=== PATIENT | male | born 1935 | race Caucasian/White ===

== ENCOUNTER 2017-07-22 19:02 | Observation (INO) ==
[2017-07-22] MEDS ORDERED: GI Cocktail 40 ML EACH PO ONE (19:26)
[2017-07-22] MEDS ORDERED: 0.9 % Sodium Chloride 500 ML IVC ONE (19:26)
[2017-07-22] MEDS ORDERED: Ondansetron 4 MG/2 ML VIAL IVP ONE (19:29)
--- NOTE | 2017-07-22 19:35 | Emergency Department Note ---
Disposition Clinical Impression: Chest pain Qualifiers: Chest pain type: unspecified Qualified Code(s): R07.9 - Chest pain, unspecified Disposition: Admitted As Inpatient Condition: Good Referrals: Neal Mccray Jr, MD [Primary Care Provider] - Forms: Work/School Release, ED Satisfaction Letter Time of Disposition: 21:20 Chest Pain HPI - General Chief Complaint: ED Chest Pain Stated Complaint: Chest/Upper Abdominal Pain Time Seen by Provider: 07/22/17 19:14 Source: patient Limitations: no limitations Vital Signs Reviewed: Yes Nursing Notes Reviewed: Yes - History of Present Illness HPI Narrative: This is an 82 year-old male with history of HTN and HLD who presents with mild discomfort to the lower chest and epigastric region, radiating to both shoulder blades, intermittently for the past 2 days. Associated with cough productive of billy sputum (which seems to go along with/worsen the chest discomfort), nausea, orthostatic dizziness, and mild/intermittent dyspnea. He denies any associated fever or vomiting. He also denies any history of CAD, PNA, COPD, or DVT/PE. Pt complaint: chest pain Onset (ago): day(s) (2) Duration: intermittent Pain Location: substernal Severity: mild Severity scale (1-10): 0 Pain Radiation: abdomen (epigastric) Improves with: nothing Associated symptoms: Reports: nausea, dyspnea (mild), cough. Denies: vomiting, syncope, palpitations, fever, leg swelling Treatments prior to arrival chest pain: aspirin - Related Data Home Medications Medication Instructions Recorded Confirmed Amlodipine Besylate [Amlodipine 5 mg PO DAILY 07/22/17 07/22/17 Besylate] Metoprolol [Lopressor] 100 mg PO DAILY 07/22/17 07/22/17 Valsartan 320 mg PO DAILY 07/22/17 07/22/17 hydroCHLOROthiazide 25 mg PO DAILY 07/22/17 07/22/17 [Hydrochlorothiazide] Allergies Allergy/AdvReac Type Severity Reaction Status Date / Time No Known Allergies Allergy Verified 06/28/17 10:19 All systems ED: reviewed and negative except as stated. Constitutional: Denies: fever Cardiovascular: Reports: as per HPI, chest pain. Denies: palpitations, edema, syncope Respiratory: Reports: cough, dyspnea (mild), sputum production (billy). Denies: hemoptysis Gastrointestinal: Reports: abdominal pain (epigastric, no lower abdominal pain) , nausea, constipation (last BM Sunday, says this is not unusual for him). Denies: vomiting, diarrhea, hematemesis Musculoskeletal: Denies: back pain Neurological: Denies: headache, weakness, numbness Chest Pain PMH - Past Medical History Medical history: Reports: hyperlipidemia, hypertension Surgical history: Reports: no surgical history Psychiatric history: Reports: no psych history - Social History Smoking Status: Former smoker Alcohol use: Reports: none Drug use: Reports: none Physical Exam - General Limitations: no limitations General appearance: alert, in no apparent distress - Head Head exam: atraumatic, normocephalic - Eye Eye exam: Present: normal appearance - ENT ENT exam: normal exam - Neck Neck exam: Present: normal inspection - Chest Chest inspection: Present: normal inspection - Respiratory Respiratory exam: Present: other (crackles bilaterally). Absent: respiratory distress - Cardiovascular Cardiovascular exam: Present: regular rate, normal rhythm, normal heart sounds. Absent: systolic murmur, diastolic murmur, rubs, gallop - Abdominal Exam Abdominal exam: Present: soft, Non-Tender, other (umbilical hernia, which patient says is old/unchanged). Absent: distention, guarding, rebound, rigidity , Snyder's sign, tenderness at McBurney's Point - Extremities Exam Extremities exam: Present: normal inspection. Absent: calf tenderness - Back Exam Back exam: Present: normal inspection - Neurological Exam Neurological exam: Present: alert, oriented X3, CN II-XII intact. Absent: motor sensory deficit - Psychiatric Psychiatric exam: Present: normal affect, normal mood - Skin Skin exam: Present: warm, dry, intact Course - Reevaluation(s) Reevaluation #1: Patient resting comfortably. Discussed test results with him. He is in agreement with coming in for obs. Time: 21:19 - Consultations Consultation #1: Reviewed case with Dr. Live, and patient accepted for admission. Time: 21:55 Vital Signs Temperature 98.1 F 07/22/17 19:04 Pulse Rate 75 07/22/17 19:04 Respiratory Rate 18 07/22/17 19:04 Blood Pressure 168/71 07/22/17 19:04 O2 Sat by Pulse Oximetry 93 07/22/17 19:04 Temperature 98.1 F 07/22/17 19:09 Pulse Rate 65 07/22/17 20:47 Respiratory Rate 18 07/22/17 20:47 Blood Pressure 142/64 07/22/17 20:47 O2 Sat by Pulse Oximetry 95 07/22/17 20:47 Oxygen Delivery Oxygen Delivery Room Air Chest Pain - MDM Narrative Medical decision making narrative: This is an 82 year-old male who presents with mild substernal/epigastric pain intermittently for 2 days, with productive cough, mild dyspnea, and orthostatic dizziness. DDx includes pneumonia, dehydration (has been working in his lawn), PUD/gastritis. Less likely ACS, CHF, pancreatitis, other acute abdominal process. Patient's symptoms, vital signs, and exam not strongly suggestive of DVT or PE. We will treat symptomatically with Zofran and gentle hydration, work up for ACS, pancreatitis, PNA, etc. - Lab Data Lab results reviewed: Yes I reviewed the patient's lab results. Result diagrams: 07/22/17 19:36 07/22/17 19:26 Lab Results 07/22/17 07/22/17 07/22/17 Range/Units 19:26 19:26 19:27 WBC (4.3-11.1) K/mcL RBC (4.19-5.50) M/mcL Hgb (12.9-16.9) g/dL Hct (37.5-50.1) % MCV (83.0-100.0) fL MCH (28.0-33.3) pg MCHC (31.6-35.5) g/dL RDW (11.5-14.5) % Plt Count (140-400) K/mcL MPV (9.4-12.4) fL Immature Gran % (0-4) % Seg Neutrophils % % Lymphocytes % % Monocytes % % Eosinophils % % Basophils % % Neutrophils # (1.6-8.9) K/mcL Lymphocytes # (0.6-4.6) K/mcL Monocytes # (0.0-1.3) K/mcL Eosinophils # (0.0-0.6) K/mcL Basophils # (0.0-0.2) K/mcL PT 13.5 H (9.4-12.1) Seconds INR 1.2 APTT 32.9 (26.0-36.0) Seconds Sodium 137 (136-145) mEq/L Potassium 3.2 L (3.5-5.1) mEq/L Chloride 102 (98-107) mEq/L Carbon Dioxide 25 (23-29) mEq/L BUN 20 (8-23) mg/dL Creatinine 1.21 (0.70-1.30) mg/dL Est GFR ( Amer) > 60 (> 60) Est GFR (Non-Af Amer) 58 L (> 60) BUN/Creatinine Ratio 17 (6-26) Glucose 99 (70-105) mg/dL Calculated Osmolality 287 (280-300) Calcium 9.2 (8.6-10.3) mg/dL Troponin I < 0.03 (< 0.04) ng/mL B-Natriuretic Peptide 198 H (Less than 100) pg/mL Amylase 31 (29-103) Units/L Lipase 22 (11-82) Units/L Urine Opiates Screen (Vyqxen=349) ng/mL Ur Barbiturates Screen (Vvfrnc=091) ng/mL Ur Phencyclidine Scrn (Cutoff=25) ng/mL Ur Amphetamines Screen (Uiaoxe=5055) ng/mL U Benzodiazepines Scrn (Ovtjef=263) ng/mL Urine Cocaine Screen (Cutoff= 300) ng/mL U Marijuana (THC) Screen (Cutoff = 50) ng/mL 18 07/22/17 Range/Units 19:36 19:42 WBC 10.8 (4.3-11.1) K/mcL RBC 4.72 (4.19-5.50) M/mcL Hgb 14.3 (12.9-16.9) g/dL Hct 41.4 (37.5-50.1) % MCV 87.7 (83.0-100.0) fL MCH 30.3 (28.0-33.3) pg MCHC 34.5 (31.6-35.5) g/dL RDW 13.2 (11.5-14.5) % Plt Count 226 (140-400) K/mcL MPV 9.5 (9.4-12.4) fL Immature Gran % 0.2 (0-4) % Seg Neutrophils % 64.0 % Lymphocytes % 20.9 % Monocytes % 14.6 % Eosinophils % 0.0 % Basophils % 0.3 % Neutrophils # 6.9 (1.6-8.9) K/mcL Lymphocytes # 2.3 (0.6-4.6) K/mcL Monocytes # 1.6 H (0.0-1.3) K/mcL Eosinophils # 0.0 (0.0-0.6) K/mcL Basophils # 0.0 (0.0-0.2) K/mcL PT (9.4-12.1) Seconds INR APTT (26.0-36.0) Seconds Sodium (136-145) mEq/L Potassium (3.5-5.1) mEq/L Chloride (98-107) mEq/L Carbon Dioxide (23-29) mEq/L BUN (8-23) mg/dL Creatinine (0.70-1.30) mg/dL Est GFR ( Amer) (> 60) Est GFR (Non-Af Amer) (> 60) BUN/Creatinine Ratio (6-26) Glucose (70-105) mg/dL Calculated Osmolality (280-300) Calcium (8.6-10.3) mg/dL Troponin I (< 0.04) ng/mL B-Natriuretic Peptide (Less than 100) pg/mL Amylase (29-103) Units/L Lipase (11-82) Units/L Urine Opiates Screen Negative (Navnty=946) ng/mL Ur Barbiturates Screen Negative (Fwsxsm=755) ng/mL Ur Phencyclidine Scrn Negative (Cutoff=25) ng/mL Ur Amphetamines Screen Negative (Uaqltv=2152) ng/mL U Benzodiazepines Scrn Negative (Alukff=718) ng/mL Urine Cocaine Screen Negative (Cutoff= 300) ng/mL U Marijuana (THC) Screen Negative (Cutoff = 50) ng/mL - Radiology Data Radiology results reviewed: Yes I reviewed the patient's radiology results. XR/XR chest 2V IMPRESSION: 1. Chronic bilateral lung findings suggesting underlying fibrotic changes versus chronic interstitial lung disease. No focal consolidation identified. D/ / Freeman Vincent MD / Freeman Vincent MD - EKG Data EKG attestation: Yes I reviewed and interpreted this EKG. EKG results narrative: RSR' V1 EKG shows normal: sinus rhythm, intervals [place]/QRS: left axis deviation T wave inversions noted in: III When compared to previous EKG there are: changes noted (03/04/12) Interpretation: nonspecific ST-T wave changes
[2017-07-22 19:43] LABS: Basophils % 0.3 %; Hematocrit 41.4 % (37.5-50.1); Hemoglobin 14.3 g/dL (12.9-16.9); Immature Granulocytes % 0.2 % (0-4); Lymphocytes # 2.3 K/mcL (0.6-4.6); Lymphocytes % 20.9 %; Mean Corpuscular HGB Conc 34.5 g/dL (31.6-35.5); Mean Corpuscular Hemoglobin 30.3 pg (28.0-33.3); Mean Corpuscular Volume 87.7 fL (83.0-100.0); Mean Platelet Volume 9.5 fL (9.4-12.4); Monocytes # 1.6 K/mcL (0.0-1.3); Monocytes % 14.6 %; Neutrophils # 6.9 K/mcL (1.6-8.9); Platelet Count 226 K/mcL (140-400); Red Blood Count 4.72 M/mcL (4.19-5.50); Red Cell Distribution Width 13.2 % (11.5-14.5)
[2017-07-22 19:50] LABS: INR 1.2; Prothrombin Time 13.5 Seconds (9.4-12.1)
[2017-07-22 19:53] LABS: Activated Partial Thrombo Time 32.9 Seconds (26.0-36.0)
[2017-07-22 20:02] LABS: Amphetamine Screen,Urine Negative ng/mL (Cutoff=1000); Barbiturate Screen,Urine Negative ng/mL (Cutoff=200); Benzodiazepines Screen,Urine Negative ng/mL (Cutoff=200); Cannabinoid Screen,Urine Negative ng/mL (Cutoff = 50); Cocaine Screen,Urine Negative ng/mL (Cutoff= 300); Opiate Screen,Urine Negative ng/mL (Cutoff=300); Phencyclidine Screen,Urine Negative ng/mL (Cutoff=25)
[2017-07-22 20:04] LABS: Amylase 31 Units/L (29-103); BUN/Creatinine Ratio 17 (6-26); Blood Urea Nitrogen 20 mg/dL (8-23); Calcium 9.2 mg/dL (8.6-10.3); Carbon Dioxide 25 mEq/L (23-29); Chloride 102 mEq/L (98-107); Glucose 99 mg/dL (70-105); Lipase 22 Units/L (11-82); Osmolality,Calculated 287 (280-300); Potassium 3.2 mEq/L (3.5-5.1); Sodium 137 mEq/L (136-145); eGFR For African Americans > 60 (> 60); eGFR For Non-African Americans 58 (> 60)
[2017-07-22 20:05] LABS: Troponin I < 0.03 ng/mL (< 0.04)
[2017-07-22] MEDS ORDERED: Potassium Chloride Elixir 20 MEQ/15 ML UDC PO ONE (21:08)
--- NOTE | 2017-07-22 23:06 | Internal Med History&Physical ---
Date of Encounter: 07/22/17 Time of Encounter: 22:35 Internal Medicine - H&P: HPI Chief complaint: chest pain Admitted From: Home Plans for Post Hospital Care: Home History of present illness: Mr. Avina is a 82 year old male with a pmh of HTN and HLP who presented to the ED complaining of a cough and chest pain. About one week ago patient states that he began to have a productive coughing with green/collins sputum and associated rhinorrhea, diffuse myalgia, SOB, and intermittent nausea. He states that he has not desired to eat as much. Denies hempotisis, dysphagia. He has had some vertigo with coughing. 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 Worsen with coughing but Not worsened with excertion, no change with position. Pain went away yesterday. Upon arrival to the ED, patient's vitals were wnl except an elevated blood pressure of 168/71. WBC wnl, initial troponin negative, BNP= 198, lipase= 22. EKG showed *. CXR shows Chronic bilateral lung findings suggesting underlying fibrotic changes versus chronic interstitial lung disease. No focal consolidation identified. GI cocktail, zofran, KCl 40meq and a 500ml NS bolus given in the ED. Patient was admitted to the floor for chest pain. Past Med Surg Social Fam HX - Past Medical History Medical history: hyperlipidemia, hypertension Psychiatric history: no psych history - Past Surgical History Surgical History: no surgical history - Social History Smoking Status: Former smoker Smokeless Tobacco Status: No Alcohol use: none Drug use: none Internal Medicine - H&P: Meds Amlodipine Besylate [Amlodipine Besylate] 5 mg PO DAILY 07/22/17 [History] Metoprolol [Lopressor] 100 mg PO DAILY 07/22/17 [History] Valsartan 320 mg PO DAILY 07/22/17 [History] hydroCHLOROthiazide [Hydrochlorothiazide] 25 mg PO DAILY 07/22/17 [History] 3 Allergy/AdvReac Type Severity Reaction Status Date / Time No Known Allergies Allergy Verified 06/28/17 10:19 All Systems PM: A 10-system review of systems was performed and is negative for pertinent findings except as documented above in the HPI. Review of systems: as per HPI - Constitutional Vitals: Temp Pulse Resp BP Pulse Ox 98.1 F 65 18 142/64 95 07/22/17 19:09 07/22/17 20:47 07/22/17 20:47 07/22/17 20:47 07/22/17 20:47 Exam: Constitutional: Alert, in no acute distress Head: Normocephalic, atraumatic, no sinus tenderness Heart: Normal, regular rate and rhythm, no murmurs Lungs: + crackles bilaterally Abdomen: Soft, nondistended, nontender, bowel sounds present and normal, no guarding or rigidity. back: tenderness medial to inferior border of left scapula Extremities: No edema, No clubbing, radial pulse +2/4, capillary refill <2sec. Skin: Skin warm and dry, no lesions, no rashes, no jaundice Neurologic: Cranial nerves II through XII grossly intact, strength 5/5 in all extremitites Psych: Cooperative with exam, good eye contact, cognitive function intact, speech clear, thought process logical, and goal directed Internal Med - H&P Results - Labs CBC & Chem 7: 07/22/17 19:36 07/22/17 19:26 - Assessment and plan (1) Chest pain Current Visit: Yes Status: Acute Assessment and plan: Risk factors of HTN, HLD. Patient describes chest pain as dull achy substernal , not worsened with excertion. No previous cardiac work-up. EKG shows sinus rhythm, t-wave inversion in lead III. Initial troponin negative. Plan: - trending troponins - Echo pending - continue telemetry - correct potassium, Mg level in the AM Qualifiers: Chest pain type: unspecified Qualified Code(s): R07.9 - Chest pain, unspecified (2) Acute bronchitis Current Visit: Yes Status: Acute Assessment and plan: Productive cough and rhinorrhea for 7 days. CXR negative for pneumonia. PE: crackles. Plan: - sputum culture - Azithromycin ( 1/5 days) Qualifiers: Bronchitis organism: unspecified organism Qualified Code(s): J20.9 - Acute bronchitis, unspecified (3) Hypokalemia Current Visit: Yes Status: Acute Assessment and plan: K= 3.2, most likely 2/2 to HCTZ. Given 40mg of KCl in the ED. Plan: -Potassium Chloride 40mg oral - recheck in the AM (4) Hypertension Current Visit: Yes Status: Acute Assessment and plan: Continue home meds (HCTZ, amlodipine, valsartan, metoprolol). Qualifiers: Hypertension type: essential hypertension Qualified Code(s): I10 - Essential (primary) hypertension (5) DVT prophylaxis Current Visit: Yes Status: Acute Assessment and plan: Heparin SQ - Time Spent With Patient Total time spent is greater than 50% in coordination of care (as documented) at patient's floor/unit and/or counseling patient:
[2017-07-22] MEDS ORDERED: Naloxone 0.4 MG/ML INJ IVP PRN ×2 (23:15→23:17)
[2017-07-22] MEDS ORDERED: Acetaminophen 325 MG TABLET PO PRN (23:17)
[2017-07-22] MEDS ORDERED: Azithromycin 250 MG TABLET PO ONE (23:49)
[2017-07-22] MEDS ORDERED: Ondansetron 4 MG/2 ML VIAL IVP PRN (23:51)
[2017-07-23 01:46] LABS: Hematocrit 39.9 % (37.5-50.1); Hemoglobin 13.7 g/dL (12.9-16.9); Mean Corpuscular HGB Conc 34.3 g/dL (31.6-35.5); Mean Corpuscular Hemoglobin 30.4 pg (28.0-33.3); Mean Corpuscular Volume 88.7 fL (83.0-100.0); Mean Platelet Volume 9.1 fL (9.4-12.4); Platelet Count 190 K/mcL (140-400); Red Cell Distribution Width 13.2 % (11.5-14.5)
[2017-07-23 02:11] LABS: BUN/Creatinine Ratio 17 (6-26); Blood Urea Nitrogen 17 mg/dL (8-23); Calcium 8.7 mg/dL (8.6-10.3); Carbon Dioxide 27 mEq/L (23-29); Chloride 102 mEq/L (98-107); Glucose 95 mg/dL (70-105); Magnesium 1.7 mg/dL (1.6-2.6); Osmolality,Calculated 279 (280-300); Phosphorous 1.9 mg/dL (2.7-4.5); Sodium 134 mEq/L (136-145); eGFR For African Americans > 60 (> 60); eGFR For Non-African Americans > 60 (> 60)
--- NOTE | 2017-07-23 04:20 | Event Note ---
Date of Encounter: 07/22/17 Time of Encounter: 22:30 I saw and evaluated the patient. I reviewed the residents note and agree with findings and plan as documented in the residents note. I requested the resident to add an addendum to her original note to include her EKG interpretation. I have spent greater than 35 minutes of this encounter in counseling and/or coordinating care. I discussed with the patient the results of his labs, and are plan going forward.
[2017-07-23] MEDS: *HR* Heparin 5,000 UNIT/ML VIAL SQ SCH ×2 (06:01→16:55)
--- NOTE | 2017-07-23 08:10 | Internal Med Progress Note ---
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 Worsened with coughing, but not worsened with excertion, no change with position. EKG shows normal sinus rhythm with a HR of 73, QTc= 410ms, SD interval= 153ms. New T-wave inversion in lead III compared to prior EKG 03/04/12. Serial troponins negative x3. Plan: Patient already ate this AM. Plan stress test tomorrow. NPO after midnight. Hold Metoprolol prior to stress test. 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 CXR shows Chronic bilateral lung findings suggesting underlying fibrotic changes versus chronic interstitial lung disease. No focal consolidation identified. negative for pneumonia. Rales on exam, elevated BNP 198 Plan: - sputum culture, RIP, and urine Strep and Legionella antigens pending - echo pending - Azithromycin ( 1/5 days) Qualifiers: Bronchitis organism: unspecified organism Qualified Code(s): J20.9 - Acute bronchitis, unspecified (3) Hypokalemia Current Visit: Yes Status: Acute Assessment and plan: K= 3.2 on admission, most likely due to HCTZ. Given Potassium Chloride 80mg total. Mg level WNL Plan: -Recheck in the AM (4) Hypertension Current Visit: Yes Status: Acute Assessment and plan: Continue home meds (HCTZ, amlodipine, valsartan, metoprolol). Hold metoprolol prior to stress test Qualifiers: Hypertension type: essential hypertension Qualified Code(s): I10 - Essential (primary) hypertension (5) DVT prophylaxis Current Visit: Yes Status: Acute Assessment and plan: Heparin SQ (6) CHF (congestive heart failure) Current Visit: Yes Status: Suspected Assessment and plan: CXR shows Chronic bilateral lung findings suggesting underlying fibrotic changes versus chronic interstitial lung disease. No focal consolidation identified. negative for pneumonia. Rales on exam, elevated BNP 198 Plan: - Lasix 40mg IV given x1 - echo pending Qualifiers: Heart failure type: unspecified Heart failure chronicity: acute Qualified Code(s): I50.9 - Heart failure, unspecified - Time Spent With Patient Total time spent is greater than 50% in coordination of care (as documented) at patient's floor/unit and/or counseling patient: - Subjective Interval history: Patient seen and examined resting comfortably in bed. Patient denies any new c/ o. Serial troponins are negative x3. Echo pending. Patient already ate this AM. Plan stress test tomorrow. - Constitutional Vitals: Temp Pulse Resp BP Pulse Ox 99.0 F 70 17 121/53 92 07/23/17 07:22 07/23/17 07:22 07/23/17 07:22 07/23/17 07:22 07/23/17 07:22 General appearance: Present: cooperative, A&O X 3, pleasant, no acute distress, answers questions appropriately - Head Head exam: Present: atraumatic, normocephalic - Eye Eye exam: Present: PERRL, conjuntiva pink, sclera anicteric Pupils: Present: PERRL - ENT ENT exam: Present: mucous membranes moist, normal oropharynx (mild erythema) - Neck Neck exam general surgery: Present: supple, trachea midline. Absent: lymphadenopathy - Respiratory Respiratory exam: Present: rales. Absent: accessory muscle use, rhonchi, wheezes - Cardiovascular Cardiovascular exam: Present: RRR, +S1, +S2. Absent: diastolic murmur, gallop, rubs, systolic murmur - GI/Abdominal GI/Abdominal exam: Present: normal bowel sounds, soft, no peritoneal signs. Absent: distended, tenderness - Extremities Exam Extremities exam: Present: warm, radial pulses palpable and symmetrical. Absent : calf tenderness, cyanotic, pedal edema - Back Exam Back exam: Present: normal inspection. Absent: paraspinal tenderness, tenderness - Neurological Exam Neurological exam: Present: CN II-XII intact, oriented X3, no focal deficits. Absent: pronater drift, facial droop, speech deficit - Psychiatric Psychiatric exam: Present: normal affect, normal mood - Skin Skin exam: Present: dry, intact Internal Medicine: Result - Labs CBC & Chem 7: 07/23/17 01:33 07/23/17 01:33 Labs: Short CBC 07/23/17 Range/Units 01:33 WBC 9.9 (4.3-11.1) K/mcL Hgb 13.7 (12.9-16.9) g/dL Hct 39.9 (37.5-50.1) % Plt Count 190 (140-400) K/mcL BMP 07/23/17 01:33 Sodium 134 L Potassium 4.0 Chloride 102 Carbon Dioxide 27 BUN 17 Creatinine 1.03 Glucose 95 Calcium 8.7 Cardiac Enzymes 07/23/17 Range/Units 01:33 Troponin I < 0.03 (< 0.04) ng/mL - ABG Interpretation ABG results: PT/INR, D-dimer PT 13.5 Seconds (9.4-12.1) H 07/22/17 19:26 - Pulse Oximetry Interpretation Digit-Finger Pulse Oximetry Readin (On RA) Consult Discharge Plan - Plan Referrals: Neal Mccray Jr, MD [Primary Care Provider] - 08/01/17 11:00 am <Monty Chan - Last Filed: 07/23/17 18:30> Date of Encounter: 07/23/17 - Assessment and plan (1) Chest pain Current Visit: Yes Status: Acute Qualifiers: Chest pain type: unspecified Qualified Code(s): R07.9 - Chest pain, unspecified (2) Acute bronchitis Current Visit: Yes Status: Acute Qualifiers: Bronchitis organism: unspecified organism Qualified Code(s): J20.9 - Acute bronchitis, unspecified (3) Hypokalemia Current Visit: Yes Status: Acute (4) Hypertension Current Visit: Yes Status: Acute Qualifiers: Hypertension type: essential hypertension Qualified Code(s): I10 - Essential (primary) hypertension (5) DVT prophylaxis Current Visit: Yes Status: Acute (6) CHF (congestive heart failure) Current Visit: Yes Status: Suspected Qualifiers: Heart failure type: unspecified Heart failure chronicity: acute Qualified Code(s): I50.9 - Heart failure, unspecified - Time Spent With Patient Total time spent is greater than 50% in coordination of care (as documented) at patient's floor/unit and/or counseling patient: - Constitutional Vitals: Temp Pulse Resp BP Pulse Ox 99.0 F 75 16 124/70 95 07/23/17 15:34 07/23/17 15:34 07/23/17 16:02 07/23/17 15:34 07/23/17 16:02 Internal Medicine: Result - Labs CBC & Chem 7: 07/23/17 01:33 07/23/17 01:33 Labs: Short CBC 07/23/17 Range/Units 01:33 WBC 9.9 (4.3-11.1) K/mcL Hgb 13.7 (12.9-16.9) g/dL Hct 39.9 (37.5-50.1) % Plt Count 190 (140-400) K/mcL BMP 07/23/17 01:33 Sodium 134 L Potassium 4.0 Chloride 102 Carbon Dioxide 27 BUN 17 Creatinine 1.03 Glucose 95 Calcium 8.7 Cardiac Enzymes 07/23/17 07/23/17 Range/Units 01:33 08:23 Troponin I < 0.03 < 0.03 (< 0.04) ng/mL - ABG Interpretation ABG results: PT/INR, D-dimer PT 13.5 Seconds (9.4-12.1) H 07/22/17 19:26 - Impressions Impressions Echocardiogram 07/23/17 07:12 Impressions: LVEF 60-65%. Normal LV chamber size, wall thickness and function. Mild left ventricular diastolic dysfunction. Normal right ventricular structure and function. Mild pulmonary hypertension. No significant valvular dysfunction. Left Ventricular Wall Motion: Rest Echo Findings All wall segments showed normal motion. Findings: Study Quality * Technically adequate exam. ECG Findings * Normal sinus rhythm. Left Ventricle * LVEF 60-65%. * Normal LV chamber size, wall thickness and function. * Mild left ventricular diastolic dysfunction. Right Ventricle * Normal right ventricular structure and function. Left Atrium * Mildly dilated left atrium. Right Atrium * Normal right atrial size. Aortic Valve * Mildly sclerotic aortic valve leaflets. * Trileaflet aortic valve. * No aortic regurgitation. * No aortic stenosis. Mitral Valve * Mild mitral annular calcification * No mitral regurgitation. * No mitral stenosis. Tricuspid Valve * Normal tricuspid valve structure and function. * Trace tricuspid regurgitation. * Mild pulmonary hypertension. Pulmonic Valve * Normal pulmonic valve structure and function. * No pulmonic regurgitation. Aorta * Normally sized aortic root. Pericardium * The pericardium appears normal. IVC * The IVC is not well evaluated. Pulmonary Artery * Normal visualized portions of the main pulmonary artery. - Attending Attestation I examined this patient and my medical decision-making was reviewed with the Resident Physician Dr. Ornelas. I agree with the documented findings, disposition and treatment plan as described except to the extent set forth below. Mr. Avina is a 82 year old male with a pmh of HTN and HLP who presented to the ED complaining of a cough and chest pain. About one week ago patient states that he began to have a productive coughing with green/collins sputum and associated rhinorrhea, diffuse myalgia, SOB, and intermittent nausea. Pt was admitted here and started him on empirical abx, as well as placed him on tele. Gen: A, A, O x3 Chest: Diminished BS b/l. mild rales at basal regions Heart: S1S2+ RRR a/p 1. Acute bronchitis concerning for bacterial inf Empirical abx supportive and symptomatic care 2. Acute CP high risk for ACS cont on tele serial trop Stress test in AM 3. Mild Diastolic CHF exacerbation His BNP elevated, CXR showed mild vacular congestion ( could be due to brochilitis ) one dose IV Lasix 2 D Echo showed preserved LVEF mild diastolic dysfunction
[2017-07-23] MEDS: hydroCHLOROthiazide 25 MG TABLET PO SCH (08:46)
[2017-07-23] MEDS: Valsartan 160 MG TABLET PO SCH (08:46)
[2017-07-23] MEDS: Azithromycin 250 MG TABLET PO SCH (08:47)
[2017-07-23] MEDS: amLODIPine 5 MG TABLET PO SCH (08:47)
[2017-07-23] MEDS ORDERED: Metoprolol 100 MG TABLET PO SCH (09:00)
[2017-07-23] MEDS: GuaiFENesin/Dextromethorphan TABLET PO SCH ×2 (11:13→21:00)
[2017-07-23] MEDS ORDERED: Ipratropium/Albuterol Neb 3 ML ONE (11:57)
[2017-07-23] MEDS ORDERED: Furosemide 40 MG/4 ML VIAL IVP ONE (11:58)
[2017-07-23] MEDS: Ipratropium/Albuterol Neb 3 ML IH SCH ×3 (12:16→22:27)
[2017-07-23 17:02] LABS: Adenovirus Not Detected (Not Detect); Bordetella Pertussis Not Detected (Not Detect); Chlamydophila pneumoniae Not Detected (Not Detect); Coronavirus 229E Not Detected (Not Detect); Coronavirus HKU1 Not Detected (Not Detect); Coronavirus NL63 Not Detected (Not Detect); Coronavirus OC43 Not Detected (Not Detect); Human Metapneumovirus Not Detected (Not Detect); Human Rhinovirus/Enterovirus Not Detected (Not Detect); Influenza A Subtype 2009 H1 Not Detected (Not Detect); Influenza A Untypeable Not Detected (Not Detect); Influenza B Not Detected (Not Detect); Mycoplasma pneumoniae Not Detected (Not Detect); Parainfluenza Virus 1 Not Detected (Not Detect); Parainfluenza Virus 2 Not Detected (Not Detect); Parainfluenza Virus 3 Not Detected (Not Detect); Parainfluenza Virus 4 Not Detected (Not Detect); Respiratory Syncytial Virus Not Detected (Not Detect)
--- NOTE | 2017-07-23 18:50 | Electrocardiograph Report ---
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
[2017-07-24] MEDS: Ipratropium/Albuterol Neb 3 ML IH SCH ×2 (03:47→10:35)
[2017-07-24] MEDS ORDERED: Regadenoson 0.4 MG/5 ML SYRINGE IVP ONE (05:39)
[2017-07-24] MEDS: *HR* Heparin 5,000 UNIT/ML VIAL SQ SCH (06:00)
[2017-07-24 06:02] LABS: BUN/Creatinine Ratio 20 (6-26); Blood Urea Nitrogen 22 mg/dL (8-23); Calcium 8.8 mg/dL (8.6-10.3); Carbon Dioxide 25 mEq/L (23-29); Chloride 96 mEq/L (98-107); Glucose 122 mg/dL (70-105); Osmolality,Calculated 277 (280-300); Potassium 3.2 mEq/L (3.5-5.1); Sodium 131 mEq/L (136-145); eGFR For African Americans > 60 (> 60); eGFR For Non-African Americans > 60 (> 60)
[2017-07-24 09:38] VITALS: BP 126/70
[2017-07-24] MEDS: Valsartan 160 MG TABLET PO SCH (10:32)
[2017-07-24] MEDS: Azithromycin 250 MG TABLET PO SCH (10:32)
[2017-07-24] MEDS: hydroCHLOROthiazide 25 MG TABLET PO SCH (10:32)
[2017-07-24] MEDS: GuaiFENesin/Dextromethorphan TABLET PO SCH (10:32)
[2017-07-24] MEDS: amLODIPine 5 MG TABLET PO SCH (10:32)
--- NOTE | 2017-07-24 10:33 | Discharge Summary ---
<Arvin Ornelas - Last Filed: 07/24/17 12:56> - NOTES TO OUTPATIENT PROVIDER Notes to Outpatient Provider: Patient treated for acute bronchitis, hypokalemia , and diastolic CHF. Conitnue Azithromycin for 3 more days. Repeat BMP in 1 week. 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 Worsened with coughing, but not worsened with excertion, no change with position. EKG shows normal sinus rhythm with a HR of 73, QTc= 410ms, OH interval= 153ms. New T-wave inversion in lead III compared to prior EKG 03/04/12. Serial troponins negative x3. Plan: Nuclear stress test performed. Metoprolol held prior to stress test. 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 CXR shows Chronic bilateral lung findings suggesting underlying fibrotic changes versus chronic interstitial lung disease. No focal consolidation identified. negative for pneumonia. Decreased Rales on exam, elevated BNP 198 Plan: - sputum culture, RIP, and urine Strep and Legionella antigens negative - Azithromycin ( Day 2 of 5) Qualifiers: Bronchitis organism: unspecified organism Qualified Code(s): J20.9 - Acute bronchitis, unspecified (3) Hypokalemia Priority: Primary Status: Acute Assessment and Plan: K= 3.2 on admission, most likely due to HCTZ. Given Potassium Chloride. Mg level WNL Plan: -Supplement potassium (4) Hypertension Priority: Secondary Status: Acute Assessment and Plan: Continue home meds (HCTZ, amlodipine, valsartan, metoprolol). Hold metoprolol prior to stress test Qualifiers: Hypertension type: essential hypertension Qualified Code(s): I10 - Essential (primary) hypertension (5) DVT prophylaxis Priority: Secondary Status: Acute Assessment and Plan: Heparin SQ (6) CHF (congestive heart failure) Priority: Primary Status: Acute Assessment and Plan: CXR shows Chronic bilateral lung findings suggesting underlying fibrotic changes versus chronic interstitial lung disease. No focal consolidation identified. negative for pneumonia. Rales on exam, elevated BNP 198 Plan: - Lasix 40mg IV given x1 - Echo reveals 60-65% EF, mild LV diastolic dysfunction - Continue home meds Qualifiers: Heart failure type: diastolic Heart failure chronicity: acute Qualified Code(s): I50.31 - Acute diastolic (congestive) heart failure Hospital course: Mr. Avina is a 82 year old male - Time Spent with Patient Total time spent providing and/or coordinating discharge services: - Discharge Medications Prescriptions: Azithromycin [Zithromax] 250 mg PO DAILY #3 tablet Furosemide [Lasix] 20 mg PO DAILY #30 tablet GuaiFENesin/Dextromethorphan [Mucinex Dm] 1 each PO BID #14 tab.er.12h Potassium Chloride 10 meq PO DAILY #30 tab.er.prt Home Medications: Amlodipine Besylate 5 mg PO DAILY 07/22/17 [History] Valsartan 320 mg PO DAILY 07/22/17 [History] Metoprolol Succinate [Toprol Xl] 100 mg PO DAILY 07/23/17 [History] Simvastatin [Zocor] 20 mg PO HS 07/23/17 [History] Azithromycin [Zithromax] 250 mg PO DAILY #3 tablet 07/24/17 [Rx] Furosemide [Lasix] 20 mg PO DAILY #30 tablet 07/24/17 [Rx] GuaiFENesin/Dextromethorphan [Mucinex Dm] 1 each PO BID #14 tab.er.12h 07/24/17 [Rx] Metoprolol [Lopressor] 100 mg PO DAILY tablet 07/24/17 [Rx] Potassium Chloride 10 meq PO DAILY #30 tab.er.prt 07/24/17 [Rx] Allergies/Adverse Reactions: 3 Allergy/AdvReac Type Severity Reaction Status Date / Time No Known Allergies Allergy Verified 06/28/17 10:19 Date of admission: 07/22/17 22:00 Primary care physician: Neal Mccray Jr, MD Discharging clinician: Arvin Ornelas Anticipated date of discharge: 07/24/17 - Constitutional Vitals: Temp Pulse Resp BP Pulse Ox 97.7 F 74 17 126/70 95 07/24/17 09:37 07/24/17 09:37 07/24/17 09:37 07/24/17 09:37 07/24/17 09:37 General appearance: Present: cooperative, A&O X 3, pleasant, no acute distress, answers questions appropriately - Head Head exam: Present: atraumatic, normocephalic - Eye Eye exam: Present: PERRL, conjuntiva pink, sclera anicteric Pupils: Present: PERRL - ENT ENT exam: Present: mucous membranes moist, normal oropharynx - Neck Neck exam general surgery: Present: supple, trachea midline. Absent: lymphadenopathy - Respiratory Respiratory exam: Present: CTAB. Absent: accessory muscle use, rales, rhonchi, wheezes - Cardiovascular Cardiovascular exam: Present: RRR, +S1, +S2. Absent: diastolic murmur, gallop, rubs, systolic murmur - GI/Abdominal GI/Abdominal exam: Present: normal bowel sounds, soft, no peritoneal signs. Absent: distended, tenderness - Extremities Exam Extremities exam: Present: warm, radial pulses palpable and symmetrical. Absent : calf tenderness, cyanotic, pedal edema - Back Exam Back exam: Present: normal inspection. Absent: paraspinal tenderness, tenderness - Neurological Exam Neurological exam: Present: CN II-XII intact, oriented X3, no focal deficits. Absent: pronater drift, facial droop, speech deficit - Psychiatric Psychiatric exam: Present: normal affect, normal mood - Skin Skin exam: Present: dry, intact, normal color, warm - Patient Status Disposition: Home, Self-Care Condition: Good Functional capacity at discharge: independent ambulation Overall status at discharge: patient is back to baseline - Discharge Instructions Instructions: Potassium Chloride (By mouth), Guaifenesin (By mouth), Azithromycin (By mouth), Chest Pain (DC), Acute Bronchitis (DC) Follow Up With: Neal Mccray Jr, MD [Primary Care Provider] - 08/01/17 11:00 am - Diet and Activity Activity: increase activity as tolerated, resume usual activities as tolerated Diet: regular diet (cardiac) <Monty Chan - Last Filed: 07/24/17 13:28> Orders not resulted at time of discharge: Pending orders 07/24/17 05:44 NM keanu perf SPECT multi [NM] Routine Date of Encounter: 07/24/17 - Discharge Diagnosis (1) Chest pain Status: Acute Qualifiers: Chest pain type: unspecified Qualified Code(s): R07.9 - Chest pain, unspecified (2) Acute bronchitis Status: Acute Qualifiers: Bronchitis organism: unspecified organism Qualified Code(s): J20.9 - Acute bronchitis, unspecified (3) Hypokalemia Status: Acute (4) Hypertension Status: Acute Qualifiers: Hypertension type: essential hypertension Qualified Code(s): I10 - Essential (primary) hypertension (5) DVT prophylaxis Status: Acute (6) CHF (congestive heart failure) Status: Acute Qualifiers: Heart failure type: diastolic Heart failure chronicity: acute Qualified Code(s): I50.31 - Acute diastolic (congestive) heart failure Hospital course: Mr. vAina is a 82 year old male - Time Spent with Patient Total time spent providing and/or coordinating discharge services: Date of admission: 07/22/17 22:00 Primary care physician: Neal Mccray Jr, MD - Constitutional Vitals: Temp Pulse Resp BP Pulse Ox 97.7 F 74 17 126/70 95 07/24/17 09:37 07/24/17 09:37 07/24/17 10:36 07/24/17 09:37 07/24/17 10:36 - Attending Attestation I examined this patient and my medical decision-making was reviewed with the Resident Physician Dr. Ornelas. I agree with the documented findings, disposition and treatment plan as described except to the extent set forth below. Mr. Avina is a 82 year old male with a pmh of HTN and HLP who presented to the ED complaining of a cough and chest pain. About one week ago patient states that he began to have a productive coughing with green/collins sputum and associated rhinorrhea, diffuse myalgia, SOB, and intermittent nausea. Pt was admitted here and started him on empirical abx, as well as placed him on tele. Denied any more CP. Breathing comfortably on RA Gen: A, A, O x3 Chest: Diminished BS b/l. Heart: S1S2+ RRR a/p 1. Acute bronchitis concerning for bacterial inf Empirical abx supportive and symptomatic care 2. Acute CP high risk for ACS cont on tele serial trop negative Stress test came back as negative for ischemia 3. Mild Diastolic CHF exacerbation His BNP elevated, CXR showed mild vascular congestion ( could be due to bronchiolitis ) switched to PO Lasix 2 D Echo showed preserved LVEF mild diastolic dysfunction Medically stable to d/c home
== END 2017-07-24 15:02 | disposition home or self-care (01) ==
LOC: EMEROO 19:02 → 3BNU 19:02
PROVIDERS: ADMIT Family Medicine; ATTEND Pediatrics

== ENCOUNTER 2018-09-09 17:39 | Inpatient (IN) ==
--- NOTE | 2018-09-09 17:52 | Emergency Department Note ---
Disposition Clinical Impression: Lung nodule, Fatty liver, NSTEMI (non-ST elevated myocardial infarction) Chest pain Qualifiers: Chest pain type: unspecified Qualified Code(s): R07.9 - Chest pain, unspecified Disposition: Admitted As Inpatient Condition: Fair Time of Disposition: 20:18 General Adult HPI - General Stated complaint: Chest pain Time Seen by Provider: 09/09/18 17:44 Source: patient, EMS Mode of arrival: EMS Limitations: no limitations Nursing Notes Reviewed: Yes Vital Signs Reviewed: Yes - History of Present Illness HPI Narrative: Male patient presenting to the emergency room complaining of left-sided chest pain. States it started earlier this afternoon after he was helping his brother work on some windows. States that he spelled the pain before but never this severe. Is been intermittent performed but is now consistent. Reports occasional shortness of breath associated with this. States that it does radi ate to his back as well as to the left side occasionally. He did go to urgent care initially for this pain and was transferred here. Was given 324 mg of aspirin as well as nitroglycerin in route. This did not change patient's chest pain. Was also given 8 mg of morphine. - Related Data Home Medications Medication Instructions Recorded Confirmed Amlodipine Besylate 5 mg PO DAILY 07/22/17 07/23/17 Valsartan 320 mg PO DAILY 07/22/17 07/23/17 Metoprolol Succinate [Toprol Xl] 100 mg PO DAILY 07/23/17 07/23/17 Simvastatin [Zocor] 20 mg PO HS 07/23/17 07/23/17 Previous Rx's Medication Instructions Recorded Azithromycin [Zithromax] 250 mg PO DAILY #3 tablet 07/24/17 Furosemide [Lasix] 20 mg PO DAILY #30 tablet 07/24/17 GuaiFENesin/Dextromethorphan 1 each PO BID #14 tab.er.12h 07/24/17 [Mucinex Dm] Metoprolol [Lopressor] 100 mg PO DAILY tablet 07/24/17 Potassium Chloride 10 meq PO DAILY #30 tab.er.prt 07/24/17 Allergies Allergy/AdvReac Type Severity Reaction Status Date / Time No Known Allergies Allergy Verified 06/28/17 10:19 All systems ED: reviewed and negative except as stated. Review of Systems: As Per HPI Constitutional: Denies: fever, chills Cardiovascular: Reports: chest pain. Denies: palpitations, syncope Respiratory: Reports: dyspnea (occasional) Gastrointestinal: Denies: abdominal pain, nausea, vomiting, diarrhea Genitourinary: Denies: urgency, dysuria, frequency, hematuria Musculoskeletal: Denies: back pain Neurological: Denies: headache Past Medical History - Past Medical History Attestation: Yes The following information was validated with the patient. Source: patient Medical history: Reports: hyperlipidemia, hypertension Surgical history: Reports: no surgical history Psychiatric history: Reports: no psych history - Social History Smoking Status: Former smoker Smokeless Tobacco Status: No Alcohol use: Reports: none Drug use: Reports: none Physical Exam - General General appearance: in distress (appears uncomfortable) - Head Head exam: atraumatic, normocephalic, normal inspection - Eye Eye exam: Present: normal appearance, PERRL, EOMI - ENT ENT exam: normal exam, normal oropharynx, mucous membranes moist - Neck Neck exam: Present: normal inspection, full ROM, trachea midline. Absent: tenderness - Chest Chest inspection: Present: normal inspection, symmetric chest wall rise - Respiratory Respiratory exam: Present: normal lung sounds bilaterally. Absent: respiratory distress, accessory muscle use - Cardiovascular Cardiovascular exam: Present: regular rate, normal rhythm, normal heart sounds - Abdominal Exam Abdominal exam: Present: soft, Non-Tender. Absent: tenderness, distention, guarding, rebound, rigidity, organomegaly, Snyder's sign, Rovsing's sign, tenderness at McBurney's Point - Extremities Exam Extremities exam: Present: normal inspection, full ROM, normal capillary refill. Absent: tenderness, pedal edema - Back Exam Back exam: Present: normal inspection, full ROM. Absent: tenderness - Neurological Exam Neurological exam: Present: alert, oriented X3 - Psychiatric Psychiatric exam: Present: normal affect, normal mood - Skin Skin exam: Present: warm, dry, intact, normal color. Absent: rash Course Course Narrative: Patient appears uncomfortable in bed. He is mildly tachypneic. Frequently grabbing the left side of his chest and raising up off the bed. Does not appear to be histrionic in nature however. Lung sounds are clear heart tones are normal abdomen soft nontender. He does have a mild umbilical hernia. This is not incarcerated and appearance. It does reduce easily. Patient with no significant cardiac history. He does however have a history of high cholesterol as well as hypertension. He has been taking his medication as prescribed. Has never had a cardiac evaluation that he states. Initial EKG with some T-wave inversion in lead 3. We will get a basic lab workup on patient. Provided him with further nitroglycerin. Patient does appear to be sleepy after the morphine use we will withhold opiates at this time. He did receive aspirin by EMS prior to arrival here. He did not have chest pain relief with the initial nitroglycerin her we will still continue with this. - Reevaluation(s) Reevaluation #1: Patient's troponin is elevated at 9. Repeat EKG with T-wave inversion now in lead V4. Patient is also now in atrial fibrillation she was not and earlier. We did call Dr. Donato. We discussed our concern for the patient's presentation as well as his ongoing chest pain and EKG changes as well as elevated troponin he states he will begin to the patient. He is requesting we activated Package Handler. However we also discussed that this is not STEMI criteria so we will not be activating a active STEMI. - Consultations Consultation #1: I spoke with Dr Donato. We discussed the patient EKG changes and his ongoing chest pain as well as his presentation elevated troponin. He is requesting we go ahead and activate the Package Handler and he will be in the cath the patient tonight. Time: 20:06 Vital Signs Temperature 99.4 F 09/09/18 17:54 Pulse Rate 73 09/09/18 17:54 Respiratory Rate 16 09/09/18 17:54 Blood Pressure 138/68 09/09/18 17:54 O2 Sat by Pulse Oximetry 97 09/09/18 17:54 Temperature 99.4 F 09/09/18 17:54 Pulse Rate 112 09/09/18 20:31 Respiratory Rate 14 09/09/18 20:31 Blood Pressure 132/100 09/09/18 20:31 O2 Sat by Pulse Oximetry 95 09/09/18 20:31 Oxygen Delivery Oxygen Delivery Nasal Cannula Medical Decision Making - Medical Records Medical records reviewed: Yes I reviewed the patient's medical records. - Lab Data Lab results reviewed: Yes I reviewed the patient's lab results. Result diagrams: 09/09/18 18:01 09/09/18 18:01 Lab Results 09/09/18 09/09/18 09/09/18 Range/Units 18:01 18:01 18:01 WBC 14.2 H (4.3-11.1) K/mcL RBC 4.47 (4.19-5.50) M/mcL Hgb 13.9 (12.9-16.9) g/dL Hct 41.8 (37.5-50.1) % MCV 93.5 (83.0-100.0) fL MCH 31.1 (28.0-33.3) pg MCHC 33.3 (31.6-35.5) g/dL RDW 13.7 (11.5-14.5) % Plt Count 239 (140-400) K/mcL MPV 10.2 (9.4-12.4) fL Immature Gran % 0.6 (0-4) % Seg Neutrophils % 77.5 % Lymphocytes % 9.2 % Monocytes % 12.3 % Eosinophils % 0.0 % Basophils % 0.4 % Neutrophils # 11.0 H (1.6-8.9) K/mcL Lymphocytes # 1.3 (0.6-4.6) K/mcL Monocytes # 1.7 H (0.0-1.3) K/mcL Eosinophils # 0.0 (0.0-0.6) K/mcL Basophils # 0.1 (0.0-0.2) K/mcL PT 14.0 H (9.4-12.1) Seconds INR 1.2 APTT (26.0-36.0) Seconds Heparin Anti-Xa, Unfract (0.30-0.70) IU/mL Sodium 137 (136-145) mEq/L Potassium 3.6 (3.5-5.1) mEq/L Chloride 103 (98-107) mEq/L Carbon Dioxide 26 (23-29) mEq/L BUN 19 (8-23) mg/dL Creatinine 1.03 (0.70-1.30) mg/dL Est GFR ( Amer) > 60 (> 60) Est GFR (Non-Af Amer) > 60 (> 60) BUN/Creatinine Ratio 18 (6-26) Glucose 115 H (70-105) mg/dL Calculated Osmolality 287 (280-300) Calcium 9.3 (8.6-10.3) mg/dL Magnesium (1.6-2.6) mg/dL Troponin I 9.72 H* (< 0.04) ng/mL 09/09/18 09/09/18 Range/Units 20:10 20:10 WBC (4.3-11.1) K/mcL RBC (4.19-5.50) M/mcL Hgb (12.9-16.9) g/dL Hct (37.5-50.1) % MCV (83.0-100.0) fL MCH (28.0-33.3) pg MCHC (31.6-35.5) g/dL RDW (11.5-14.5) % Plt Count (140-400) K/mcL MPV (9.4-12.4) fL Immature Gran % (0-4) % Seg Neutrophils % % Lymphocytes % % Monocytes % % Eosinophils % % Basophils % % Neutrophils # (1.6-8.9) K/mcL Lymphocytes # (0.6-4.6) K/mcL Monocytes # (0.0-1.3) K/mcL Eosinophils # (0.0-0.6) K/mcL Basophils # (0.0-0.2) K/mcL PT 14.1 H (9.4-12.1) Seconds INR 1.2 APTT 30.6 (26.0-36.0) Seconds Heparin Anti-Xa, Unfract 0.02 L (0.30-0.70) IU/mL Sodium (136-145) mEq/L Potassium (3.5-5.1) mEq/L Chloride (98-107) mEq/L Carbon Dioxide (23-29) mEq/L BUN (8-23) mg/dL Creatinine (0.70-1.30) mg/dL Est GFR ( Amer) (> 60) Est GFR (Non-Af Amer) (> 60) BUN/Creatinine Ratio (6-26) Glucose (70-105) mg/dL Calculated Osmolality (280-300) Calcium (8.6-10.3) mg/dL Magnesium 2.0 (1.6-2.6) mg/dL Troponin I (< 0.04) ng/mL - Radiology Data Radiology results reviewed: Yes I reviewed the patient's radiology results. Chest X-Ray 09/09/18 17:50 IMPRESSION: Cardiomegaly with mild CHF. D/ / 09/09/2018 18:45:27 Corey Gomez MD / jane Interpreting Provider: Corey Gomez MD CT Dissection 09/09/18 18:08 IMPRESSION: CT chest: No evidence of intramural hematoma or aortic dissection flap. Cardiomegaly and coronary calcifications. 1 cm right upper lobe nodule. Subpleural increased interstitial thickening could be a chronic process. Emphysematous changes or edema or fibrosis/scarring may be considered.. CT abdomen pelvis: No acute inflammatory process within the abdomen pelvis. Fat containing umbilical hernia. Mild bladder wall thickening may relate to underdistention. Please correlate with urinalysis findings. Mild colonic diverticulosis Fleischner Society guidelines for follow-up and management of incidentally detected pulmonary nodules: Single Solid Nodule: Nodule size less than 6 mm In a low-risk patient, no routine follow-up. In a high-risk patient, optional CT at 12 months. Nodule size equals 6-8 mm In a low-risk patient, CT at 6-12 months, then consider CT at 18-24 months. In a high-risk patient, CT at 6-12 months, then CT at 18-24 months. Nodule size greater than 8 mm In a low-risk patient, consider CT at 3 months, PET/CT, or tissue sampling. In a high-risk patient, consider CT at 3 months, PET/CT, or tissue sampling. Multiple Solid Nodules: Nodule size less than 6 mm In a low-risk patient, no routine follow-up. In a high-risk patient, optional CT at 12 months. Nodule size equals 6-8 mm In a low-risk patient, CT at 3-6 months, then consider CT at 18-24 months. In a high-risk patient, CT at 3-6 months, then CT at 18-24 months. Nodule size greater than 8 mm In a low-risk patient, CT at 3-6 months, then consider CT at 18-24 months. In a high-risk patient, CT at 3-6 months, then CT at 18-24 months. - Low risk patients include individuals with minimal or absent history of smoking and other known risk factors. - High risk patients include individuals with a history or smoking or known risk factors. Radiology 2017 http://pubs.rsna.org/doi/full/10.1148/radiol.[email or web address] D/ / Per Pierson / Per Pierson Interpreting Provider: Per Pierson - EKG Data EKG #1 EKG attestation: Yes I reviewed and interpreted this EKG. EKG results narrative: Repeat EKG. Atrial fibrillation at a rate 88. This is new onset for him. WA interval was not measured. QRS duration is 97. QT is 358. QTC is 434. Patient with new T-wave inversion in lead V3 from previous EKG from earlier tonight. Still no criteria for a STEMI. Mild ST elevation however in leads aVF as well as lead 3. Also lead V3. EKG #2 EKG attestation: Yes I reviewed and interpreted this EKG. EKG results narrative: Repeat EKG. Atrial fibrillation at a rate 88. This is new onset for him. WA interval was not measured. QRS duration is 97. QT is 358. QTC is 434. Patient with new T-wave inversion in lead V3 from previous EKG from earlier tonight. Still no criteria for a STEMI. Mild ST elevation however in leads aVF as well as lead 3. Also lead V3.
[2018-09-09] MEDS ORDERED: Isovue-370 500 ML BOTTLE IVP ONE (18:08)
--- NOTE | 2018-09-09 18:09 | Emergency Department Note ---
Disposition Clinical Impression: Lung nodule, Fatty liver Chest pain Qualifiers: Chest pain type: unspecified Qualified Code(s): R07.9 - Chest pain, unspecified Disposition: Admitted As Inpatient Condition: Serious Referrals: NONE,PCP [Primary Care Provider] - Forms: ED Satisfaction Letter Time of Disposition: 20:08 General Adult HPI - General Chief complaint: ED Chest Pain Stated complaint: Chest pain Time Seen by Provider: 09/09/18 17:44 Source: patient, EMS Mode of arrival: EMS Limitations: no limitations - History of Present Illness Pain Scale: 8 - Related Data Home Medications Medication Instructions Recorded Confirmed Amlodipine Besylate 5 mg PO DAILY 07/22/17 07/23/17 Valsartan 320 mg PO DAILY 07/22/17 07/23/17 Metoprolol Succinate [Toprol Xl] 100 mg PO DAILY 07/23/17 07/23/17 Simvastatin [Zocor] 20 mg PO HS 07/23/17 07/23/17 Previous Rx's Medication Instructions Recorded Azithromycin [Zithromax] 250 mg PO DAILY #3 tablet 07/24/17 Furosemide [Lasix] 20 mg PO DAILY #30 tablet 07/24/17 GuaiFENesin/Dextromethorphan 1 each PO BID #14 tab.er.12h 07/24/17 [Mucinex Dm] Metoprolol [Lopressor] 100 mg PO DAILY tablet 07/24/17 Potassium Chloride 10 meq PO DAILY #30 tab.er.prt 07/24/17 Allergies Allergy/AdvReac Type Severity Reaction Status Date / Time No Known Allergies Allergy Verified 06/28/17 10:19 Past Medical History - Past Medical History Medical history: Reports: hyperlipidemia, hypertension Surgical history: Reports: no surgical history Psychiatric history: Reports: no psych history - Social History Smoking Status: Former smoker Smokeless Tobacco Status: No Alcohol use: Reports: none Drug use: Reports: none Physical Exam - General Limitations: no limitations General appearance: alert, in distress Course Vital Signs Temperature 99.4 F 09/09/18 17:54 Pulse Rate 73 09/09/18 17:54 Respiratory Rate 16 09/09/18 17:54 Blood Pressure 138/68 09/09/18 17:54 O2 Sat by Pulse Oximetry 97 09/09/18 17:54 Temperature 99.4 F 09/09/18 17:54 Pulse Rate 103 09/09/18 19:02 Respiratory Rate 14 08/05/19 19:02 Blood Pressure 138/86 09/09/18 19:02 O2 Sat by Pulse Oximetry 97 09/09/18 19:02 Oxygen Delivery Oxygen Delivery Room Air Medical Decision Making - Lab Data Result diagrams: 09/09/18 18:01 09/09/18 18:01 Lab Results 09/09/18 09/09/18 09/09/18 Range/Units 18:01 18:01 18:01 WBC 14.2 H (4.3-11.1) K/mcL RBC 4.47 (4.19-5.50) M/mcL Hgb 13.9 (12.9-16.9) g/dL Hct 41.8 (37.5-50.1) % MCV 93.5 (83.0-100.0) fL MCH 31.1 (28.0-33.3) pg MCHC 33.3 (31.6-35.5) g/dL RDW 13.7 (11.5-14.5) % Plt Count 239 (140-400) K/mcL MPV 10.2 (9.4-12.4) fL Immature Gran % 0.6 (0-4) % Seg Neutrophils % 77.5 % Lymphocytes % 9.2 % Monocytes % 12.3 % Eosinophils % 0.0 % Basophils % 0.4 % Neutrophils # 11.0 H (1.6-8.9) K/mcL Lymphocytes # 1.3 (0.6-4.6) K/mcL Monocytes # 1.7 H (0.0-1.3) K/mcL Eosinophils # 0.0 (0.0-0.6) K/mcL Basophils # 0.1 (0.0-0.2) K/mcL PT 14.0 H (9.4-12.1) Seconds INR 1.2 Sodium 137 (136-145) mEq/L Potassium 3.6 (3.5-5.1) mEq/L Chloride 103 (98-107) mEq/L Carbon Dioxide 26 (23-29) mEq/L BUN 19 (8-23) mg/dL Creatinine 1.03 (0.70-1.30) mg/dL Est GFR ( Amer) > 60 (> 60) Est GFR (Non-Af Amer) > 60 (> 60) BUN/Creatinine Ratio 18 (6-26) Glucose 115 H (70-105) mg/dL Calculated Osmolality 287 (280-300) Calcium 9.3 (8.6-10.3) mg/dL Troponin I 9.72 H* (< 0.04) ng/mL Critical Care Time Critical Care Time: Yes Total Critical Care Time: 35 Attestation: Critical care performed: Time is exclusive of separately billable procedures. Time includes: direct patient care, patient reassessment, coordination of patient care, interpretation of data (laboratory data, radiology data, and respiratory data), review of patient's medical records, medical consultation and documentation of patient care. Procedures included in critical care time: Procedures excluded from critical care time: Attestation Statement - Attestation Attestation: I examined this patient and my medical decision-making was reviewed with the Resident Physician. I agree with the documented findings, disposition and treatment plan as described except to the extent set forth below. Patient presents to the ED with a chief clinic chest pain. Lower chest upper abdomen. Onset this afternoon while installing some windows. Had some shortness of breath associated with it. History of hypertension and high cholesterol. On examination he appeared mildly dyspneic. Diaphoretic. Uncomfortable. Lungs clear. Plan. Chronic workup shows elevated troponin 9. His EKG, which was reviewed with the resident, has some increasing T wave inversions in his inferior leads from his baseline. There is some very minor elevations or not a millimeter. It does not meet STEMI criteria. He was sent for CTA as her concern for dissection. There is no dissection. His troponin is elevated. He is still having pain despite morphine, nitroglycerin, and aspirin. His repeat EKG now shows inversions V3 and V4. Calling intervention alists to discuss heart catheterization. Patient discussed with . We will activate laborer/grade check. Both EKGs were reviewed with the resident. Chest X-Ray 09/09/18 17:50 IMPRESSION: Cardiomegaly with mild CHF. D/ / 09/09/2018 18:45:27 Corey Gomez MD / [facility] Interpreting Provider: Corey Gomez MD CT Dissection 09/09/18 18:08 IMPRESSION: CT chest: No evidence of intramural hematoma or aortic dissection flap. Cardiomegaly and coronary calcifications. 1 cm right upper lobe nodule. Subpleural increased interstitial thickening could be a chronic process. Emphysematous changes or edema or fibrosis/scarring may be considered.. CT abdomen pelvis: No acute inflammatory process within the abdomen pelvis. Fat containing umbilical hernia. Mild bladder wall thickening may relate to underdistention. Please correlate with urinalysis findings. Mild colonic diverticulosis Fleischner Society guidelines for follow-up and management of incidentally detected pulmonary nodules: Single Solid Nodule: Nodule size less than 6 mm In a low-risk patient, no routine follow-up. In a high-risk patient, optional CT at 12 months. Nodule size equals 6-8 mm In a low-risk patient, CT at 6-12 months, then consider CT at 18-24 months. In a high-risk patient, CT at 6-12 months, then CT at 18-24 months. Nodule size greater than 8 mm In a low-risk patient, consider CT at 3 months, PET/CT, or tissue sampling. In a high-risk patient, consider CT at 3 months, PET/CT, or tissue sampling. Multiple Solid Nodules: Nodule size less than 6 mm In a low-risk patient, no routine follow-up. In a high-risk patient, optional CT at 12 months. Nodule size equals 6-8 mm In a low-risk patient, CT at 3-6 months, then consider CT at 18-24 months. In a high-risk patient, CT at 3-6 months, then CT at 18-24 months. Nodule size greater than 8 mm In a low-risk patient, CT at 3-6 months, then consider CT at 18-24 months. In a high-risk patient, CT at 3-6 months, then CT at 18-24 months. - Low risk patients include individuals with minimal or absent history of smoking and other known risk factors. - High risk patients include individuals with a history or smoking or known risk factors. Radiology 2017 http://pubs.rsna.org/doi/full/10.1148/radiol.[email or web address] D/ / Per Pierson / Per Pierson Interpreting Provider: Per Pierson
[2018-09-09] MEDS ORDERED: 0.9 % Sodium Chloride 1,000 ML ONE ×4 (18:11→20:47)
[2018-09-09 18:32] LABS: Basophils # 0.1 K/mcL (0.0-0.2); Basophils % 0.4 %; Hematocrit 41.8 % (37.5-50.1); Hemoglobin 13.9 g/dL (12.9-16.9); Immature Granulocytes % 0.6 % (0-4); Lymphocytes # 1.3 K/mcL (0.6-4.6); Lymphocytes % 9.2 %; Mean Corpuscular HGB Conc 33.3 g/dL (31.6-35.5); Mean Corpuscular Hemoglobin 31.1 pg (28.0-33.3); Mean Corpuscular Volume 93.5 fL (83.0-100.0); Mean Platelet Volume 10.2 fL (9.4-12.4); Monocytes # 1.7 K/mcL (0.0-1.3); Monocytes % 12.3 %; Platelet Count 239 K/mcL (140-400); Red Blood Count 4.47 M/mcL (4.19-5.50); Red Cell Distribution Width 13.7 % (11.5-14.5); Segmented Neutrophils % 77.5 %; White Blood Count 14.2 K/mcL (4.3-11.1)
[2018-09-09 18:39] LABS: INR 1.2
[2018-09-09 18:55] LABS: Troponin I 9.72 ng/mL (< 0.04)
[2018-09-09 19:03] LABS: Glucose 115 mg/dL (70-105)
[2018-09-09 19:51] LABS: BUN/Creatinine Ratio 18 (6-26); Blood Urea Nitrogen 19 mg/dL (8-23); Calcium 9.3 mg/dL (8.6-10.3); Carbon Dioxide 26 mEq/L (23-29); Chloride 103 mEq/L (98-107); Osmolality,Calculated 287 (280-300); Potassium 3.6 mEq/L (3.5-5.1); Sodium 137 mEq/L (136-145); eGFR For African Americans > 60 (> 60); eGFR For Non-African Americans > 60 (> 60)
[2018-09-09] MEDS ORDERED: *HR* Heparin 5,000 UNIT/ML VIAL IVP ONE (19:59)
[2018-09-09] MEDS ORDERED: *HR* Heparin 5,000 UNIT/ML VIAL IVP PRN ×2 (19:59)
[2018-09-09] MEDS ORDERED: Heparin 25,000 UNIT/250 ML D5W 25,000 UNIT/250 ML IV.SOLN IVC SCH (20:00)
[2018-09-09] MEDS ORDERED: *HR* Ticagrelor 90 MG TABLET PO ONE (20:02)
[2018-09-09] MEDS ORDERED: *HR* Heparin 5,000 UNIT/ML VIAL ONE (20:08)
[2018-09-09] MEDS ORDERED: *HR* Ticagrelor 90 MG TABLET ONE (20:08)
[2018-09-09] MEDS: Aspirin 81 MG TAB.CHEW ONE (20:14)
[2018-09-09] MEDS: Nitroglycerin 0.4 MG TAB.SUBL SL STA ×2 (20:16→20:21)
--- NOTE | 2018-09-09 20:34 | Cardiology History & Physical ---
Date of Encounter: 09/10/18 Time of Encounter: 21:00 Assessment and Plan (1) Acute GA Current Visit: Yes Status: Acute Ongoing chest pain despite medical therapy. A/R/B of emergent C dw patient including worsening GA/CVA/CABG/ARINA/bleeding//contrast reaction. EF assessment to be completed. Heparin ordered. Pt aware and agreeable with plan. The assessment and plan as outlined above was discussed with the patient and/or family members who expressed understanding and agreement. All questions were answered. Qualifiers: Myocardial infarction type: non-ST elevation myocardial infarction Qualified Code(s): I21.4 - Non-ST elevation (NSTEMI) myocardial infarction (2) Hypertension Current Visit: No Status: Acute The assessment and plan as outlined above was discussed with the patient and/or family members who expressed understanding and agreement. All questions were answered. Qualifiers: Hypertension type: essential hypertension Qualified Code(s): I10 - Essential (primary) hypertension History of Present Illness Chief complaint: chest pain HPI: Mr. Avina is a 83 year old male with no previous cardiac history, HTN and dyslipidemia presented with acute onset severe chest discomfort radiating through to back associated with mild dyspnea starting a few hours before presentation. Reported to ED around 1700. CT dissection ruled out at 1800 with troponin coming back at ~9. He continued having chest pain despite NTG SLx3 And morphine 8mg. Aspirin given. Past Med Surg Social Fam HX - Past Medical History Medical history: hyperlipidemia, hypertension Psychiatric history: no psych history - Past Surgical History Surgical History: no surgical history - Social History Smoking Status: Former smoker Smokeless Tobacco Status: No Alcohol use: none Drug use: none - Family History Mother Living Status: Father Living Status: Medications and Allergies Amlodipine Besylate 5 mg PO DAILY 07/22/17 [History] Valsartan 320 mg PO DAILY 07/22/17 [History] Metoprolol Succinate [Toprol Xl] 100 mg PO DAILY 07/23/17 [History] Simvastatin [Zocor] 20 mg PO HS 07/23/17 [History] Azithromycin [Zithromax] 250 mg PO DAILY #3 tablet 07/24/17 [Rx] Furosemide [Lasix] 20 mg PO DAILY #30 tablet 07/24/17 [Rx] GuaiFENesin/Dextromethorphan [Mucinex Dm] 1 each PO BID #14 tab.er.12h 07/24/17 [Rx] Metoprolol [Lopressor] 100 mg PO DAILY tablet 07/24/17 [Rx] Potassium Chloride 10 meq PO DAILY #30 tab.er.prt 07/24/17 [Rx] Allergy/AdvReac Type Severity Reaction Status Date / Time No Known Allergies Allergy Verified 06/28/17 10:19 All Systems Review: The remainder of the systems were reviewed and are negative - Constitutional Constitutional: no chills, no fever(s) - EENT Eyes: no blurred vision, no loss of vision Nose, mouth and throat: no bleeding gums, no dysphagia - Cardiovascular Cardiovascular: chest pain at rest, chest pain with exertion - Respiratory Respiratory: no hemoptysis, no wheezing - Gastrointestinal Gastrointestinal: no hematemesis, no hematochezia - Genitourinary Genitourinary: no hematuria, no nocturia - Musculoskeletal Musculoskeletal: no muscle cramps, no muscle weakness - Integumentary Integumentary: no erythema, no unusual bruising - Neurological Neurological: no syncope, no tingling - Psychiatric Psychiatric: no hallucinations, no panic attacks - Hematological/Lymphatic Hematologic/Lymphatic: no easy bleeding, no easy bruising Physical Examination Vital Signs, Last 4 Hours Temp Pulse Resp BP Pulse Ox 09/09/18 20:21 98 24 141/89 92 09/09/18 19:02 103 14 138/86 97 09/09/18 17:54 99.4 F 73 16 138/68 97 General: Conversant, Other (mildly distressed) HEENT: Atraumatic Neck: No JVD Cardiac: Reg Rate and Rhythm Lungs: Normal Breath Sounds Neuro: Alert and responsive Abdomen: Soft Skin: No rashes noted on visualized skin Musculoskeletal: No Chest Wall Tenderness Extremities: No Edema Results 09/10/18 04:11 09/10/18 04:11 Lab Results 09/09/18 09/09/18 09/09/18 18:01 18:01 18:01 WBC 14.2 H Hgb 13.9 Hct 41.8 Plt Count 239 INR 1.2 Sodium 137 Potassium 3.6 Chloride 103 Carbon Dioxide 26 BUN 19 Creatinine 1.03 Glucose 115 H Calcium 9.3 Troponin I 9.72 H* - EKG Interpretation EKG results cardiology: personally reviewed, sinus rhythm
[2018-09-09] MEDS ORDERED: ISOVUE-370 200 ML INFUS..BTL ONE ×2 (20:37→21:34)
[2018-09-09] MEDS ORDERED: Nitroglycerin 1,000 MCG/10 ML VIAL IV ONE (20:37)
[2018-09-09] MEDS ORDERED: Heparin 1,000 UNITS/500 mL 500 ML ONE (20:37)
[2018-09-09] MEDS ORDERED: *HR* Heparin 10,000 UNIT/10 ML VIAL ONE (20:37)
--- NOTE | 2018-09-09 20:39 | Pre-Sedation Evaluation ---
Pre-sedation evaluation - Pre-sedation checklist Date of procedure: 09/10/18 Procedure: [facility] Recent Vitals: Last Vital Signs Temp 99.4 F 09/09/18 17:54 Pulse 112 09/09/18 20:31 Resp 14 09/09/18 20:31 BP 132/100 09/09/18 20:31 Pulse Ox 95 09/09/18 20:31 H&P (including ROS) documented in medical record: Yes Previous reaction to sedatives/anesthetics: No Dietary Status: NPO after Midnight Airway Assessment: Patient can open mouth completely, TMJ function normal ASA Classification *see protocol: CLASS II-Mild systemic disease, [id number] to any of the above to indicate emergent Plan of Care: Pt appropriate candidate for procedure/moderate/conscious sedation, Risks/benefits of procedure/sedation discussed w/ patient/family Cardiac Registry (Cardio Only) - Functional Capacity Functional Capacity: >=4 METS with symptoms - Clincal Frailty Scale Clinical Frailty Scale: Vulnerable
[2018-09-09 20:45] LABS: INR 1.2; Prothrombin Time 14.1 Seconds (9.4-12.1)
[2018-09-09 20:46] LABS: Activated Partial Thrombo Time 30.6 Seconds (26.0-36.0); Heparin anti-factor XA UFH 0.02 IU/mL (0.30-0.70)
[2018-09-09] MEDS ORDERED: Verapamil 5 MG/2 ML VIAL ONE (20:46)
[2018-09-09 20:55] LABS: Troponin I 8.61 ng/mL (< 0.04)
[2018-09-09] MEDS ORDERED: Morphine Sulfate 2 MG/ML SYRINGE IVP PRN (20:58)
[2018-09-09] MEDS ORDERED: Ondansetron 4 MG/2 ML VIAL IVP PRN (20:58)
[2018-09-09] MEDS ORDERED: *HR* Midazolam HCl 2 MG/2 ML VIAL ONE (21:06)
[2018-09-09] MEDS ORDERED: *HR* FentaNYL (PF) 100 MCG/2 ML VIAL ONE (21:07)
[2018-09-09] MEDS ORDERED: Ondansetron 4 MG/2 ML VIAL ONE (21:17)
[2018-09-09] MEDS ORDERED: Tirofiban 12.5 MG/250ML 12.5 MG/250 ML BAG ONE (21:26)
[2018-09-09] MEDS ORDERED: D5% in Water 100 ML ONE (21:29)
[2018-09-09] MEDS ORDERED: *HR* Phenylephrine 10 MG/ML VIAL ONE (21:29)
[2018-09-09] MEDS ORDERED: Acetaminophen 325 MG TABLET PO PRN (21:31)
[2018-09-09] MEDS ORDERED: *HR* HYDROcodone/Acet 5/325 mg TABLET PO PRN (21:31)
[2018-09-09] MEDS ORDERED: Tirofiban 12.5 MG/250ML 12.5 MG/250 ML BAG IVC SCH (22:15)
--- NOTE | 2018-09-09 22:25 | Invasive Diagnostic Lab Proc ---
Name: Neal Avina Date of Study: 09/09/2018 Date: 1935 Ht: 68.9in Medical Record#: [id number] Age: 83 Wt: 158.73lb Gender: Male BSA: 1.87 Order #: [id number] BMI: 23.51 Physicians Procedure Physician: Souleymane Donato MD, FACC Referring MD: Referring MD: Staff Name Position Time In Sites, Michelle RT (R) Monitor 09:03 PM Namrata March RT (R) Scrub 09:03 PM Kisha Hurtado RN Electronics Commodity Manager 09:03 PM Indications Indication Non-Stemi Procedures Performed Procedure L HRT ARTERY/VENTRICLE ANGIO PRQ CARD BM STENT W/ANGIO 1 VSL Pre-Procedure Checklist Informed consent is complete signed and on chart. H&P is on chart. ID band is on and ID verified with patient. Patient NPO for procedure The procedure was described for the patient and questions were answered. Blood Pressure: 120/85 ECG is on chart. Rhythm: Atrial Fibrillation Plan of Care Patient will tolerate the procedure without complications. Adequate level of comfort will be maintained. Hemodynamics will remain stable Patient will recover from procedure without complications. Respiratory function will be maintained. Cardiac rhythm will remain stable. Patient temperature will be maintained. Patient and/or family have verbalized understanding of the procedure. Patient Education Chief Complaint/Reason for Test: Cardiac Cath Developmental Category: Geriatric (65+ years) Developmentally Appropriate for Age: Yes Learning Barriers: None Education Needs: Procedure Education Method: Verbal Information Taught: Cardiac Cath Educational Evaluation: Able to repeat information Intravenous Access Time IV Size Location DC'd Fluid/Drip Rate Units RN 18g 1 02/08" Patent On Arrival Lt Arm 0.9NaCl 50 ml/hr Kisha Hurtado RN Allergies No Known Allergies Vital Signs Time BP (mmHg) HR (bpm) O2 Sat. RR (bpm) LOC 09:04 PM 119 / 89 100 80 % 18 09:09 PM 120 / 85 122 97 % 25 09:14 PM 97 / 67 78 86 % 10 09:17 PM 94 / 80 68 98 % 10 09:19 PM 96 / 53 69 99 % 14 09:21 PM 82 / 51 64 99 % 12 09:23 PM 89 / 66 90 99 % 11 09:29 PM 89 / 54 69 99 % 11 09:34 PM 99 / 60 100 99 % 12 09:38 PM 107 / 97 112 99 % 10 09:42 PM 120 / 83 100 100 % 11 09:44 PM 127 / 79 99 100 % 10 09:49 PM 129 / 63 110 97 % 11 09:54 PM 130 / 75 83 97 % 14 09:59 PM 136 / 85 108 95 % 14 10:04 PM 128 / 86 107 % 13 Procedural Medications Time Medication Dose Units Method Given By 09:04 PM Oxygen 4 L/min nasal cannula Bryant, Kisha JONES 09:06 PM Lidocaine 2% 20 ml Subcutaneous Souleymane Donato MD, FACC 09:08 PM Versed 2 mg Intravenous Bryant, Kisha JONES 09:08 PM Fentanyl 50 mcg Intravenous Bryant, Kisha JONES 09:18 PM Zofran 4 mg Intravenous Bryant, Kisha JONES 09:26 PM Dopamine 10 mcg/hr Intravenous Goltry, Kisha JONES 09:31 PM Neosynephrine 100 mcg Intravenous Goltry, Kisha JONES 09:33 PM Dopamine 15 mcg/hr Intravenous Goltry, Kisha JONES 09:33 PM Aggrastat Bolus: 37.5 ml Intravenous Goltry, Kisha JONES 09:34 PM Aggrastat 12.5mg/250ml 6 ml Intravenous Bryant, Kisha JONES 09:40 PM Dopamine 10 mcg/hr Intravenous Goltry, Kisha JONES 09:42 PM Dopamine 15 mcg/hr Intravenous Bryant, Kisha JONES 09:57 PM Dopamine 10 mcg/hr Intravenous Goltry, Kisha JONES 09:58 PM Dopamine 5 mcg/hr Intravenous Goltry, Kisha JONES ASA Classification: Emergent Procedure: ASA score is assumed Maicol Score Preprocedure Postprocedure Activity 2- Moves 4 extremities sustained head lift Activity 2- Moves 4 extremities sustained head lift Circulation 2- SBP +/= 20 points of pre-anesthetic level Circulation 2- SBP +/= 20 points of pre-anesthetic level Consciousness 2- Awake and alert oriented x 3 Consciousness 2- Awake and alert oriented x 3 O2 Saturation 2- Able to maintain O2 satruation of 92% on room air O2 Saturation 2- Able to maintain O2 satruation of 92% on room air Respiratory 2- Able to deep breathe and cough well Respiratory 2- Able to deep breathe and cough well Total Score 10 Total Score 10 Contrast Agent: Isovue Diagnostic Contrast: 79 ml Total Contrast: 79 ml Fluoro Dose: 42 mGy Activated Clotting Time Time Seconds to Clot 09:27 PM 400 Procedure Log Time Note Enter By 08:50 PM CathStat 08:55 PM 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 Informed consent was obtained. tsites 09:03 PM Vitals capture started with the following parameters, Patient=Adult, Interval=5 min, Initial Ekecusbu=601 mmHg, Deflation Rate=3 mmHg, Cuff placed on Right Arm 09:04 PM Procedure start 21:04 tsites 09:04 PM OW=536 bpm, XIUE=891/89 mmhg, SpO2=80.0 %, Resp=18 B/min 09:04 PM Time: 21:04 Oxygen on at 4 L/min per nasal cannula by Kisha Hurtado RN tsites 09:04 PM Clinical Presentation: Non-STEMI tsites 09:06 PM Recorded ECG: HR=99 Condition=Condition 1 09:06 PM Pressure channel 1 zeroed. 09:06 PM Hair removed from procedure site in holding area using clippers. Bilateral groin prepped with Chloraprep by Namrata March RT (R), then patient was draped. Skin intact. tsites 09:06 PM Time out was performed according to hospital policy. Conscious sedation and anesthesia was achieved (see medication log with in this report above) tsites 09:06 PM Time: 21:06 20 ml Lidocaine 2% to right groin Subcutaneous Given by Souleymane Donato MD, [facility] tsites 09:08 PM Access obtained by percutaneous puncture. 6Fr 10cm Terumo [place] sheath placed in right Femoral artery. [id number] tsites 09:08 PM 5Fr FL 4 catheter inserted over the wire [facility] tsites 09:08 PM 0.035 145cm Navilyst 3mmJ wire [id number] tsites 09:08 PM Time: 21:08 Versed 2 mg Intravenous Given by Kisha Hurtado RN tsites 09:08 PM Time: 21:08 Fentanyl 50 mcg Intravenous Given by Kisha Hurtado RN tsites 09:08 PM Recorded Pressure: Ao, HR=97, Condition=Condition 1 (Aorta) Ao 108/81/95 09:09 PM LCA angiography performed in multiple views. tsites 09:09 PM NH=432 bpm, WFJC=664/85 mmhg, SpO2=97 %, Resp=25 B/min 09:11 PM wire reinserted catheter removed tsites 09:11 PM 5Fr FR 4 catheter inserted over the wire [facility] tsites 09:12 PM Recorded Pressure: Ao, HR=81, Condition=Condition 1 (Aorta) Ao 69/50/58 09:13 PM wire reinserted catheter removed tsites 09:14 PM HR=78 bpm, NIBP=97/67 mmhg, SpO2=86.0 %, Resp=10 B/min 09:14 PM 5Fr Pigtail catheter inserted over the wire [facility] tsites 09:14 PM Recorded Pressure: LV, HR=84, Condition=Condition 1 (Left Ventricle) LV 77/4/20 09:14 PM Recorded Pressure: LV, Ao, OP=241, Condition=Condition 1 (Left Ventricle) LV 98/10/18, (Aorta) Ao 95/58/75 09:14 PM Catheter crossed the aortic valve and was selectively placed in the left ventricle. Pressures recorded on pullback for left heart catheterization. tsites 09:15 PM wire reinserted catheter removed tsites 09:15 PM PCI Status Emergency tsites 09:15 PM 6Fr JR 4 Runway guide catheter was used to cannulate the PCI vessel successfully. reused? No tsites 09:15 PM Inflation device was opened. tsites 09:15 PM Lesion found in Proximal RCA. Pre Stenosis: 90 Pre JOMAR Flow: tsites 09:16 PM Lesion found in Mid RCA. Pre Stenosis: 100 Pre JOMAR Flow: 0: No Flow/No perfusion tsites 09:16 PM Right Coronary, Right Posterior Descending Arteries with Right Posterolateral and Acute Marginal branches with 100 % stenosis. If graft is supplying this area, 0 % stenosis tsites 09:16 PM NIBP STAT measurement started. 09:17 PM 2.0 mm x 12 mm Emerge Monorail balloon across target lesion- successful. reused? No tsites 09:17 PM HR=68 bpm, NIBP=94/80 mmhg, SpO2=98 %, Resp=10 B/min 09:17 PM Balloon inflated @ 10 abril for 4 seconds tsites 09:17 PM Balloon inflated @ 10 abril for 8 seconds tsites 09:18 PM Balloon inflated @ 10 abril for 9 seconds tsites 09:18 PM Time: 21:18 Zofran 4 mg Intravenous Given by Kisha Hurtado RN tsites 09:18 PM Balloon inflated @ 10 abril for 10 seconds tsites 09:19 PM HR=69 bpm, NIBP=96/53 mmhg, SpO2=99 %, Resp=14 B/min 09: PM Balloon inflated @ 10 abril for 13 seconds tsites 09: PM Lesion found in Mid Circumflex. Pre Stenosis: 60 Pre JOMAR Flow: tsites 09:20 PM NIBP STAT measurement started. 09:21 PM HR=64 bpm, NIBP=82/51 mmhg, SpO2=99 %, Resp=12 B/min 09:22 PM act drawn tsites 09: PM Balloon catheter removed intact. tsites 09: PM 1.5 mm x 20 mm Emerge Monorail balloon across target lesion- successful. reused? No tsites 09: PM Balloon inflated @ 14 abril for 14 seconds tsites 09:23 PM Circumflex, Obtuse Marginal, Left Posterior Descending, and Left Posterolateral Coronary Arteries with 60 % stenosis. If graft is supplying this area, 0 % stenosis tsites 09:23 PM Balloon inflated @ 14 abril for 12 seconds tsites 09:23 PM HR=90 bpm, NIBP=89/66 mmhg, SpO2=99 %, Resp=11 B/min 09:24 PM Balloon inflated @ 14 abril for 10 seconds tsites 09: PM Balloon inflated @ 14 abril for 13 seconds tsites 09: PM Time: 21:26 Dopamine 10 mcg/hr Intravenous Given by Kisha Hurtado RN Rodríguez pump tsites 09: PM At 21:27 the ACT was 400 seconds. tsites 09: PM 2.25mm x 38mm Synergy drug-eluting stent across target lesion- successful Lot #[id number] tsites 09:29 PM HR=69 bpm, NIBP=89/54 mmhg, SpO2=99 %, Resp=11 B/min 09:29 PM stent removed undeployed tsites 09:29 PM 2.25 mm x 20mm NC Trek Rx balloon across target lesion- successful. reused? No tsites 09:30 PM Balloon inflated @ 14 abril for 12 seconds tsites 09:30 PM Balloon inflated @ 16 abril for 12 seconds tsites 09:30 PM Balloon inflated @ 20 abril for 9 seconds tsites 09:30 PM Balloon catheter removed intact. tsites 09:31 PM Time: 21:31 Neosynephrine 100 mcg Intravenous Given by Kisha Hurtado RN Rodríguez pump tsites 09:32 PM stent reinserted tsites 09:33 PM Time: 21:33 Dopamine 15 mcg/hr Intravenous Given by Kisha Hurtado RN Rodríguez pump tsites 09:33 PM stent removed undeployed tsites 09:34 PM EO=751 bpm, NIBP=99/60 mmhg, SpO2=99 %, Resp=12 B/min 09:34 PM Time: 21:33 Aggrastat Bolus: 37.5 ml Intravenous Given by Kisha Hurtado RN Rodríguez pump tsites 09:34 PM Time: 21:34 Aggrastat 12.5mg/250ml 6 ml Intravenous Given by Kisha Hurtado RN Rodríguez pump tsites 09:34 PM .014 Prowater 180cm guide wire across target lesion- successful. reused? No tsites 09:35 PM 2.25mm x 20mm Synergy drug-eluting stent across target lesion- successful Lot #[id number] tsites 09:35 PM Stent deployed @ 12 abril for 12 seconds tsites 09:38 PM Stent delivery system removed intact. tsites 09:38 PM wires removed tsites 09:38 PM prowater reinserted tsites 09:38 PM XT=522 bpm, QQCT=002/97 mmhg, SpO2=99 %, Resp=10 B/min 09:40 PM Time: 21:40 Dopamine 10 mcg/hr Intravenous Given by Kisha uHrtado RN Rodríguez pump tsites 09:41 PM 2.25mm x 24mm Synergy drug-eluting stent across target lesion- successful Lot #[id number] tsites 09:41 PM pt graphix reinserted tsites 09:41 PM NIBP STAT measurement started. 09:42 PM Time: 21:42 Dopamine 15 mcg/hr Intravenous Given by Kisha Hurtado RN Rodríguez pump tsites 09:42 PM RE=596 bpm, QMCT=069/83 mmhg, GtC8=532 %, Resp=11 B/min 09:44 PM HR=99 bpm, OIUC=673/79 mmhg, MvJ6=218 %, Resp=10 B/min 09:44 PM Stent deployed @ 12 abril for 18 seconds tsites 09:46 PM Stent delivery system removed intact. tsites 09:47 PM 2.25mm x 16mm Synergy drug-eluting stent across target lesion- successful Lot #[id number] tsites 09:48 PM Stent deployed @ 12 abril for 10 seconds tsites 09:49 PM LX=114 bpm, NIQX=983/63 mmhg, SpO2=97 %, Resp=11 B/min 09:52 PM Stent delivery system removed intact. tsites 09:52 PM 2.5 mm x 6mm NC Trek Rx balloon across target lesion- successful. reused? No tsites 09:54 PM Balloon inflated @ 16 abril for 20 seconds tsites 09:54 PM HR=83 bpm, TRRU=046/75 mmhg, SpO2=97 %, Resp=14 B/min 09:55 PM Balloon catheter removed intact. tsites 09:55 PM Guide wire removed intact. tsites 09:55 PM Guide catheter removed intact. tsites 09:56 PM Coronary Dominance: right tsites 09:56 PM Bolus angiogram of right Femoral complete: 2 ml/sec for a total of 4 mls tsites 09:57 PM Time: 21:57 Dopamine 10 mcg/hr Intravenous Given by Kisha Hurtado RN Rodríguez pump tsites 09:58 PM Time: 21:58 Dopamine 5 mcg/hr Intravenous Given by Kisha Hurtado RN Rodríguez pump tsites 09:59 PM YY=206 bpm, MOVQ=138/85 mmhg, SpO2=95 %, Resp=14 B/min 10:00 PM Procedure completed at 22:00 09/09/2018 tsites 10:00 PM Did you address JOMAR flow and Dominance? YesCoronary Dominance: right tsites 10:01 PM Sign out completed: Radiation Dose 513 mGy, 41.5 Gy/cm2 Fluoro Time: 16.8 Isovue 370 - 200ml contrast 79 ml given by Souleymane Donato MD, FACC. Complications: None. 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 Sedation minutes 53. Cardiac Rehab Consult needed: Yes. Confirmed administered medications: Yes tsites 10:01 PM Isovue 370 - 200ml,2 Bottle(s) used. tsites 10:01 PM Sheath left in place to be pulled on floor/holding areaV+Pad tsites 10:01 PM Estimated Blood Loss: less than 20cc tsites 10:01 PM Post ECG Sinus Tachycardia tsites 10:01 PM Post Blood Pressure 136/85 tsites 10:01 PM 22:01 Post Pulses Bilateral DP & PT 1+ tsites 10:02 PM Information taught Cardiac Cath, PCI, and V+ Pad tsites 10:02 PM Education needs Procedure, Plan of Care, and Responsibilities of Patient in Care tsites 10:02 PM Learning barriers :None tsites 10:02 PM Education Methods Verbal tsites 10:02 PM Education evaluation Able to repeat information tsites 10:02 PM Site status No bleeding/ No Hematoma - Rt Groin as reported by Namrata March RT (R) at 22:02 tsites 10:02 PM Opsite applied tsites 10:02 PM Plavix, Effient or Brilinta given Yes in er tsites 10:03 PM Delay to floor No tsites 10:03 PM NIBP STAT measurement started. 10:04 PM UR=566 bpm, BKGI=306/86 mmhg, Resp=13 B/min 10:08 PM Report given to miguel JONES Pt taken to ICU Room #12. 22:07 tsites 10:08 PM Patient out of room: 22:08 tsites 10:08 PM no family at this time tsites Complications Complication None Hemodynamics Pressures Site Systolic/A Wave Diastolic/V Wave Mean AO 108 81 95 AO 69 50 58 LV 77 4 20 LV 98 10 18 AO 95 58 75 Post Procedure Information Blood Pressure: 136/85 mmHg Rhythm: Sinus Tachycardia Post procedural instructions were given Closure Device Time Device Success/Fail 09/09/2018 10:08:00 PM Mechanical Compression Site Checks Time Location Status Staff Sheath In? Note 10:02 PM Rt Groin No bleeding/ No Hematoma Namrata March RT (R) Pulses Time Site Pre-Procedure Post-Procedure Note Bilateral DP & PT 1+ 10:01:00 PM Bilateral DP & PT 1+ Updated by Michelle Tellez RT (R) on 09/09/2018 10:14:27 PM Michelle Tellez RT electronically signed on 09/09/2018 10:19:26 PM with status of Final
[2018-09-10 04:42] LABS: Basophils % 0.1 %; Hematocrit 38.4 % (37.5-50.1); Hemoglobin 12.5 g/dL (12.9-16.9); Immature Granulocytes % 0.5 % (0-4); Lymphocytes # 0.9 K/mcL (0.6-4.6); Lymphocytes % 6.5 %; Mean Corpuscular HGB Conc 32.6 g/dL (31.6-35.5); Mean Corpuscular Hemoglobin 30.5 pg (28.0-33.3); Mean Corpuscular Volume 93.7 fL (83.0-100.0); Monocytes # 1.5 K/mcL (0.0-1.3); Monocytes % 11.5 %; Neutrophils # 10.9 K/mcL (1.6-8.9); Platelet Count 218 K/mcL (140-400); Segmented Neutrophils % 81.4 %; White Blood Count 13.4 K/mcL (4.3-11.1)
[2018-09-10 04:59] LABS: BUN/Creatinine Ratio 21 (6-26); Blood Urea Nitrogen 20 mg/dL (8-23); Calcium 8.4 mg/dL (8.6-10.3); Carbon Dioxide 25 mEq/L (23-29); Chloride 105 mEq/L (98-107); Glucose 111 mg/dL (70-105); Osmolality,Calculated 289 (280-300); Potassium 4.2 mEq/L (3.5-5.1); Sodium 138 mEq/L (136-145); eGFR For African Americans > 60 (> 60); eGFR For Non-African Americans > 60 (> 60)
--- NOTE | 2018-09-10 05:45 | Event Note ---
Date of Encounter: 09/10/18 Time of Encounter: 05:45 - Cardiology Event Note PCI of RCA JAMES x 3 overlapping for occluded vessel. TTE pending.
[2018-09-10] MEDS: *HR* Ticagrelor 90 MG TABLET PO SCH ×2 (07:50→21:07)
[2018-09-10] MEDS: Aspirin 81 MG TAB.CHEW PO SCH (07:50)
--- NOTE | 2018-09-10 10:51 | Cardiology Progress Note ---
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 [facility] 09/10/18: s/p PCI with JAMES x3 to RCA, prelim report. TTE: pending. Suspect RV infarct, hypotensive upon exam, will start IVF. Continue DAPT with asa and brilinta for a minimum of 1 year. Hold BB for now d/t hypotension. continue statin. Cardiac rehab. Plan to step down tomorrow, 09/11/18 if stable. Recommend additional 24 hours in the ICU. Qualifiers: Myocardial infarction type: non-ST elevation myocardial infarction Qualified Code(s): I21.4 - Non-ST elevation (NSTEMI) myocardial infarction (2) NSTEMI (non-ST elevated myocardial infarction) Current Visit: Yes Status: Acute (3) Afib Current Visit: Yes Status: Acute Suspected new onset afib in the setting of AMI. Asymptomatic. No prior hx or symptoms reported. NSR now upon exam. CHA2Ds Vasc=4 (age, HTN, CAD). Discussed with Dr. Huertas; will start Heparin gtt now (standard protocol). Anticipate will start Coumadin, goal INR 2-3 vs. NOAC d/t triple therapy and advanced age. Qualifiers: Atrial fibrillation type: paroxysmal Qualified Code(s): I48.0 - Paroxysmal atrial fibrillation (4) Hypertension Current Visit: No Status: Acute Hypotensive today; likely secondary to RV infarct. Hold home antihypertensives. IVF. Qualifiers: Hypertension type: essential hypertension Qualified Code(s): I10 - Essential (primary) hypertension Discussion w patient/family: The assessment and plan as outlined above was discussed with the patient and/or family members who expressed understanding and agreement. All questions were answered. Thank you for involving us in the care of your patient. Please call with any questions. The patient will be discussed and reviewed with Dr. Huertas; changes to be made accordingly. Subjective Principal diagnosis: AMI Interval history: Seen and examined. Reports improved chest pain, still has mild left arm discomfort. Hypotension noted on exam today. No issues with right groin cath site. Objective Vital Signs, Last 4 Hours Temp Pulse Resp BP Pulse Ox 09/10/18 10:09 79 17 93/62 96 09/10/18 09:07 91 22 88/63 90 09/10/18 08:22 97.9 F 09/10/18 08:08 110 21 108/63 94 09/10/18 07:58 105 09/10/18 07:39 105 24 95/74 91 General: Conversant, No Apparent Distress HEENT: Atraumatic, Normocephaly, Mucus Membranes Moist Cardiac: Reg Rate and Rhythm, Normal S1 and S2 Lungs: Normal Breath Sounds Neuro: Alert and responsive Abdomen: Soft Skin: No rashes noted on visualized skin Musculoskeletal: No Chest Wall Tenderness Extremities: No Edema, Normal Pulses Results 09/10/18 04:11 09/10/18 04:11 Lab Results 09/09/18 09/09/18 09/09/18 18:01 18:01 18:01 WBC 14.2 H Hgb 13.9 Hct 41.8 Plt Count 239 INR 1.2 APTT Sodium 137 Potassium 3.6 Chloride 103 Carbon Dioxide 26 BUN 19 Creatinine 1.03 Glucose 115 H Calcium 9.3 Magnesium Troponin I 9.72 H* 09/09/18 09/09/18 09/10/18 20:10 20:10 04:11 WBC 13.4 H Hgb 12.5 L Hct 38.4 Plt Count 218 INR 1.2 APTT 30.6 Sodium Potassium Chloride Carbon Dioxide BUN Creatinine Glucose Calcium Magnesium 2.0 Troponin I 8.61 H* 09/10/18 09/10/18 04:11 04:11 WBC Hgb Hct Plt Count INR APTT Sodium 138 Potassium 4.2 Chloride 105 Carbon Dioxide 25 BUN 20 Creatinine 0.97 Glucose 111 H Calcium 8.4 L Magnesium Troponin I 14.15 H* Active Medications Acetaminophen (Tylenol) 650 mg PO Q6HR PRN PRN Reason: Mild Pain Stop: 03/11/19 21:32 Hydrocodone Bitart/Acetaminophen ([place] 5-325 Mg) 1 tab PO Q4HR PRN PRN Reason: Moderate Pain Stop: 03/11/19 21:32 Aspirin (Aspirin) 81 mg PO DAILY GEOVANNA Stop: 03/12/19 09:01 Last Admin: 09/10/18 07:50 Dose: 81 mg Documented by: Diphenhydramine HCl (Benadryl) 25 mg PO HS PRN PRN Reason: Insomnia Stop: 02/04/20 21:32 Hydralazine HCl (Hydralazine) 20 mg IVP Q6HR PRN PRN Reason: Hypertension Stop: 03/11/19 22:03 Dopamine HCl/Dextrose (Dopamine Premix 400mg/250ml) 400 mg in 250 mls @ 13.523 mls/hr IVC .[id number] [facility]; Protocol Stop: 03/11/19 22:16 Last Admin: 09/09/18 22:44 Dose: Not Given Documented by: Sodium Chloride (0.9 % Sodium Chloride) 1,000 mls @ 100 mls/hr IVC .Q10H [facility] Stop: 03/12/19 10:46 Metoprolol Tartrate (Lopressor) 12.5 mg PO BID [facility] Stop: 03/12/19 21:01 Morphine Sulfate (Morphine) 4 mg IVP Q3H PRN PRN Reason: Severe Pain (7-10) Stop: 03/11/19 20:59 Last Admin: 09/10/18 01:41 Dose: 4 mg Documented by: Ondansetron HCl (Zofran) 4 mg IVP Q8H PRN PRN Reason: Nausea And Vomiting Stop: 03/11/19 20:59 Rosuvastatin Calcium (Crestor) 40 mg PO HS [facility] Stop: 03/11/19 21:01 Last Admin: 09/10/18 03:55 Dose: Not Given Documented by: Ticagrelor (Brilinta) 90 mg PO BID [facility] Stop: 03/12/19 09:01 Last Admin: 09/10/18 07:50 Dose: 90 mg Documented by: - Imaging and Cardiology Echo: pending Cardiac cath: pending - EKG Interpretation EKG results cardiology: personally reviewed Consult Discharge Plan - Plan Referrals: NONE,PCP [Primary Care Provider] -
[2018-09-10] MEDS ORDERED: *HR* Heparin 5,000 UNIT/ML VIAL IVP PRN ×2 (11:06)
[2018-09-10] MEDS ORDERED: Heparin 25,000 UNIT/250 ML D5W 25,000 UNIT/250 ML IV.SOLN IVC SCH (11:15)
[2018-09-10] MEDS: 0.9 % Sodium Chloride 1,000 ML IVC SCH ×2 (11:26→23:23)
--- NOTE | 2018-09-10 12:27 | Electrocardiograph Report ---
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
--- NOTE | 2018-09-10 12:35 | Electrocardiograph Report ---
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
[2018-09-11 01:19] LABS: Basophils % 0.3 %; Eosinophils % 0.1 %; Hematocrit 34.9 % (37.5-50.1); Hemoglobin 11.2 g/dL (12.9-16.9); Immature Granulocytes % 0.5 % (0-4); Lymphocytes # 1.4 K/mcL (0.6-4.6); Lymphocytes % 9.9 %; Mean Corpuscular HGB Conc 32.1 g/dL (31.6-35.5); Mean Corpuscular Volume 93.6 fL (83.0-100.0); Mean Platelet Volume 10.3 fL (9.4-12.4); Monocytes # 1.7 K/mcL (0.0-1.3); Monocytes % 11.8 %; Platelet Count 169 K/mcL (140-400); Red Blood Count 3.73 M/mcL (4.19-5.50); Red Cell Distribution Width 14.3 % (11.5-14.5); Segmented Neutrophils % 77.4 %; White Blood Count 14.2 K/mcL (4.3-11.1)
[2018-09-11 01:28] LABS: BUN/Creatinine Ratio 27 (6-26); Blood Urea Nitrogen 27 mg/dL (8-23); Calcium 8.2 mg/dL (8.6-10.3); Carbon Dioxide 26 mEq/L (23-29); Chloride 103 mEq/L (98-107); Glucose 136 mg/dL (70-105); Magnesium 1.9 mg/dL (1.6-2.6); Osmolality,Calculated 285 (280-300); Sodium 134 mEq/L (136-145); eGFR For African Americans > 60 (> 60); eGFR For Non-African Americans > 60 (> 60)
--- NOTE | 2018-09-11 06:22 | Electrocardiograph Report ---
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
--- NOTE | 2018-09-11 06:24 | Electrocardiograph Report ---
[employer] 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
[2018-09-11] MEDS: *HR* Ticagrelor 90 MG TABLET PO SCH ×2 (07:38→20:34)
[2018-09-11] MEDS: Aspirin 81 MG TAB.CHEW PO SCH (07:38)
[2018-09-11] MEDS: 0.9 % Sodium Chloride 1,000 ML IVC SCH ×2 (07:51→23:52)
[2018-09-11] MEDS ORDERED: Isovue-370 500 ML BOTTLE IVP ONE (07:58)
--- NOTE | 2018-09-11 11:17 | Cardiology Progress Note ---
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 [facility] 09/10/18: s/p PCI with JAMES x3 to RCA, prelim report. TTE 09/10/18: EF 60%, RV systolic function moderately reduced by doppler, mild MR, mild-moderate TR, mild CT Suspect RV infarct, hypotension improving, will decrease IVF to 50 mL/hr. Continue DAPT (asa + brilinta); start BB now that BP has improved, continue statin. Continue cardiac rehab. Plan to step down out of ICU today. VTE prophylaxis: heparin gtt Qualifiers: Myocardial infarction type: non-ST elevation myocardial infarction Qualified Code(s): I21.4 - Non-ST elevation (NSTEMI) myocardial infarction (2) NSTEMI (non-ST elevated myocardial infarction) Current Visit: Yes Status: Acute (3) Afib Current Visit: Yes Status: Acute Suspected new onset afib in the setting of AMI. Asymptomatic. No prior hx or symptoms reported. PAF noted overnight. CHA2Ds Vasc=4 (age, HTN, CAD). Discussed with Dr. Huertas; continue Heparin gtt now (standard protocol). Start Coumadin with pharmacy to dose, goal INR 2-3 vs. NOAC d/t triple therapy and advanced age. Will complete outpatient referral to Coumadin clinic Qualifiers: Atrial fibrillation type: paroxysmal Qualified Code(s): I48.0 - Paroxysmal atrial fibrillation (4) Hypertension Current Visit: No Status: Acute Hypotensive today; likely secondary to RV infarct. Hold home antihypertensives. IVF. Qualifiers: Hypertension type: essential hypertension Qualified Code(s): I10 - Essential (primary) hypertension (5) Pneumonia Current Visit: Yes Status: Acute Concern for developing PNA on CT scan completed this AM. Low grade temp this AM, WBC elevated. Consulted Hospitalist team for further recommendations. Qualifiers: Pneumonia type: due to unspecified organism Laterality: bilateral Lung location: lower lobe of lung Qualified Code(s): J18.1 - Lobar pneumonia, unspecified organism Discussion w patient/family: The assessment and plan as outlined above was discussed with the patient and/or family members who expressed understanding and agreement. All questions were answered. Thank you for involving us in the care of your patient. Please call with any questions. The patient will be discussed and reviewed with Dr. Huertas; changes to be made accordingly. Subjective Principal diagnosis: AMI Interval history: Seen and examined. Up to bedside chair today. Mildly dyspneic upon exam. No chest pain this AM. Objective Vital Signs, Last 4 Hours Temp Pulse Resp BP Pulse Ox 09/11/18 11:05 86 14 97/68 96 09/11/18 11:03 94 09/11/18 10:00 80 23 138/125 94 09/11/18 09:00 113 21 113/78 95 09/11/18 08:05 98.0 F 09/11/18 08:00 113 22 127/88 94 09/11/18 07:53 110 09/11/18 07:24 115 19 129/88 96 General: Conversant, No Apparent Distress HEENT: Atraumatic, Normocephaly Cardiac: Reg Rate and Rhythm, Normal S1 and S2 Lungs: Other (Bibasilar rales) Neuro: Alert and responsive Abdomen: Soft Skin: No rashes noted on visualized skin Musculoskeletal: No Chest Wall Tenderness Extremities: No Edema, Normal Pulses Results 09/11/18 00:59 09/11/18 00:59 Lab Results 09/11/18 09/11/18 00:59 00:59 WBC 14.2 H Hgb 11.2 L Hct 34.9 L Plt Count 169 Sodium 134 L Potassium 4.0 Chloride 103 Carbon Dioxide 26 BUN 27 H Creatinine 1.01 Glucose 136 H Calcium 8.2 L Magnesium 1.9 Impressions Chest CTA 09/11/18 07:58 IMPRESSION: 1. No evidence of acute pulmonary embolism or acute aortic disease. 2. Cardiomegaly and mild pericardial thickening. 3. Worsening infiltrates in the right upper and both lower lobes which may represent an acute infection. 4. Small bilateral pleural effusions. These are new. 5. Some nodularity noted which may be infectious in etiology. A more discrete right upper lobe nodule laterally was also previously seen and may be neoplastic. D/ / 09/11/2018 11:06:24 Eliza Mcdaniel MD / bcarter Interpreting Provider: Eliza Mcdaniel MD Active Medications Acetaminophen (Tylenol) 650 mg PO Q6HR PRN PRN Reason: Mild Pain Stop: 03/11/19 21:32 Hydrocodone Bitart/Acetaminophen (Denbo 5-325 Mg) 1 tab PO Q4HR PRN PRN Reason: Moderate Pain Stop: 03/11/19 21:32 Last Admin: 09/10/18 13:13 Dose: 1 tab Documented by: Aspirin (Aspirin) 81 mg PO DAILY GEOVANNA Stop: 03/12/19 09:01 Last Admin: 09/11/18 07:38 Dose: 81 mg Documented by: Diphenhydramine HCl (Benadryl) 25 mg PO HS PRN PRN Reason: Insomnia Stop: 03/11/19 21:32 Heparin Sodium (Porcine) (Heparin) 4,800 unit 70 unit/kg (4800 unit) IVP Q6HR PRN PRN Reason: SEE COMMENTS Stop: 03/12/19 11:07 Last Admin: 09/10/18 13:10 Dose: 4,800 unit Documented by: Heparin Sodium (Porcine) (Heparin) 2,400 unit 35 unit/kg (2400 unit) IVP Q6H PRN PRN Reason: SEE COMMENTS Stop: 03/12/19 11:07 Last Admin: 09/11/18 01:44 Dose: 2,400 unit Documented by: Hydralazine HCl (Hydralazine) 20 mg IVP Q6HR PRN PRN Reason: Hypertension Stop: 03/11/19 22:03 Dopamine HCl/Dextrose (Dopamine Premix 400mg/250ml) 400 mg in 250 mls @ 13.523 mls/hr IVC .[id number] GEOVANNA; Protocol Stop: 03/11/19 22:16 Last Admin: 09/11/18 06:08 Dose: Not Given Documented by: Sodium Chloride (0.9 % Sodium Chloride) 1,000 mls @ 100 mls/hr IVC .Q10H GEOVANNA Stop: 03/12/19 10:46 Last Admin: 09/11/18 07:51 Dose: 100 mls/hr Documented by: Heparin Sodium/Dextrose (Heparin 25,000 Unit/250 Ml D5w) 25,000 unit in 250 mls @ 9.534 mls/hr IVC .Q24H GEOVANNA; Protocol Stop: 03/12/19 11:16 Last Titration: 09/11/18 08:12 Dose: 11.6 unit/kg/hr, 7.9 mls/hr Documented by: Metoprolol Tartrate (Lopressor) 12.5 mg PO BID [facility] Stop: 03/12/19 21:01 Last Admin: 09/11/18 07:38 Dose: 12.5 mg Documented by: Morphine Sulfate (Morphine) 4 mg IVP Q3H PRN PRN Reason: Severe Pain (7-10) Stop: 03/11/19 20:59 Last Admin: 09/10/18 01:41 Dose: 4 mg Documented by: Ondansetron HCl (Zofran) 4 mg IVP Q8H PRN PRN Reason: Nausea And Vomiting Stop: 03/11/19 20:59 Rosuvastatin Calcium (Crestor) 40 mg PO HS [facility] Stop: 03/11/19 21:01 Last Admin: 09/10/18 21:06 Dose: 40 mg Documented by: Ticagrelor (Brilinta) 90 mg PO BID [facility] Stop: 03/12/19 09:01 Last Admin: 09/11/18 07:38 Dose: 90 mg Documented by: Warfarin Sodium (Coumadin Perpt) 1 each PO DAILY@1800 PRN; Protocol PRN Reason: SEE COMMENTS Stop: 03/13/19 18:01 - Imaging and Cardiology Echo: report reviewed Cardiac cath: report reviewed - EKG Interpretation EKG results cardiology: personally reviewed Consult Discharge Plan - Plan Referrals: NONE,PCP [Primary Care Provider] -
[2018-09-11] MEDS ORDERED: Morphine Sulfate 2 MG/ML SYRINGE IVP PRN (11:43)
[2018-09-11] MEDS ORDERED: Acetaminophen 325 MG TABLET PO PRN (11:43)
[2018-09-11] MEDS ORDERED: Ondansetron 4 MG/2 ML VIAL IVP PRN (11:43)
[2018-09-11] MEDS ORDERED: *HR* HYDROcodone/Acet 5/325 mg TABLET PO PRN (11:43)
[2018-09-11] MEDS ORDERED: *HR* Heparin 5,000 UNIT/ML VIAL IVP PRN (11:43)
[2018-09-11] MEDS ORDERED: 0.9 % Sodium Chloride 1,000 ML IVC SCH (11:43)
--- NOTE | 2018-09-11 13:45 | Internal Medicine Consult Note ---
Date of Encounter: 09/11/18 Time of Encounter: 13:00 - Assessment and Plan (1) Acute [place] Current Visit: Yes Status: Resolved Qualifiers: Myocardial infarction type: non-ST elevation myocardial infarction Qualifie d Code(s): I21.4 - Non-ST elevation (NSTEMI) myocardial infarction (2) Afib Current Visit: Yes Status: Acute Qualifiers: Atrial fibrillation type: paroxysmal Qualified Code(s): I48.0 - Paroxysmal atrial fibrillation (3) Lung nodule Current Visit: Yes Status: Chronic (4) NSTEMI (non-ST elevated myocardial infarction) Current Visit: Yes Status: Acute (5) Pneumonia Current Visit: Yes Status: Acute Qualifiers: Pneumonia type: due to unspecified organism Laterality: bilateral Lung location: lower lobe of lung Qualified Code(s): J18.1 - Lobar pneumonia, unspecified organism - Summary of Assessment and Plan Summary of Assessment and Plan: 83-year-old male with history of HTN who came into the hospital due to chest pain. Patient was emergently taken to [facility] successful PCI 3 placement in the R CA. We are consulted for the management of his pneumonia. Pneumonia: - Health care versus aspiration - We will check blood cultures, Legionella and streptococcus antigens, MRSA swab AND Calcitonin level - Patient is hemodynamically stable, afebrile. - Started the patient on vancomycin and Zosyn awaiting cultures. - Check CBC tomorrow NSTEMI status post PCI: - Management as per cardiology - On aspirin and BRILINTA. Continue BB and crestor. A. fib with RVR: - Management as per cardiology. On heparin drip and Coumadin HTN: - Management as per cardiology Lung nodule: - Patient has a remote history of smoking. Follow-up CT scan at outpatient. DVT prophylaxis: On heparin drip - Time Spent With Patient Total time spent is greater than 50% in coordination of care (as documented) at patient's floor/unit and/or counseling patient: Internal Medicine - CN: HPI - Data of Consult Consult date: 09/11/18 Requesting Physician: Rashard Christensen MD - Consult Narrative Reason for consult: Pneumonia History of present illness: Mr. Avina is a 83 year old male with history of HTN who was admitted to cardiology service on 09/09 due to chest pain. Patient was treated for NSTEMI with emergent LHC. Patient had 3 stents placed in proximal and mid RCA for which he is on aspirin and barely into. Patient also in A. fib with RVR and he is on Coumadin and Lopressor. I was consulted for the concern of pneumonia. Patient was complaining about unproductive cough one week before presentation however he denied shortness of breath, fever, chills, or night sweats. Patient remained afebrile throughout hospitalization. He had leukocytosis at presentation which remained stable throughout hospitalization. CT of the chest did not reveal any pulmonary embolism however it revealed worsening infiltrates in the right upper and lower lobes which may represent active infection. He also had small bilateral pleural effusion. Also pulmonary nodules were noted on his CT scan. She denied abdominal pain, nausea/vomiting, urinary or bowel changes. He had no skin rash, sick contacts or recent travel. Past Med Surg Social Fam HX - Past Medical History Source: patient Medical history: hyperlipidemia, hypertension Psychiatric history: no psych history - Past Surgical History Surgical History: no surgical history - Social History Smoking Status: Former smoker Smokeless Tobacco Status: No Alcohol use: none Drug use: none Occupational status: unemployed, previously employed Current living situation: Home - Independent Activity Level: Independent ambulation Recent Out of Country Travel Within the Last 8 Weeks: No - Family History Mother Living Status: Father Living Status: - Additional Family History Additional family history: No family history of malignancies. All systems: reviewed and no additional remarkable complaints except as stated Internal Medicine - CN: Meds Metoprolol Succinate [Toprol Xl] 100 mg PO DAILY 07/23/17 [History] Simvastatin [Zocor] 20 mg PO HS 07/23/17 [History] Amlodipine Besylate 5 mg PO DAILY 09/10/18 [History] Furosemide [Lasix] 20 mg PO DAILY 09/10/18 [History] Potassium Chloride [Klor-Con 10] 10 meq PO DAILY 09/10/18 [History] Valsartan 320 mg PO DAILY 09/10/18 [History] Allergy/AdvReac Type Severity Reaction Status Date / Time No Known Allergies Allergy Verified 06/28/17 10:19 Hospitalist - CN: Exam - Constitutional Vitals: Temp Pulse Resp BP Pulse Ox 97.8 F 81 14 97/68 96 09/11/18 11:00 09/11/18 11:36 09/11/18 11:05 09/11/18 11:05 09/11/18 11:05 Exam: General: Patient is alert, oriented 3. Head: Atraumatic, normal inspection, normocephalic. Eye: EOMI, PERRLA, no scleral icterus noted. ENT: Mucous membranes moist. No odontogenic infection noted. Neck: Normal inspection, no meningismus. Respiratory: Bibasilar crackles. Breathing is not labored. Cardiovascular: Tachycardic, irregular rhythm, S1 and S2 audible. No murmurs, rubs, or gallops. GI: Umbilical hernia, Soft, nondistended, normal bowel sounds. Extremities:No joint swelling, pedal edema, or tenderness noted. Neurological: Alert, oriented 3, no focal deficits. Psychiatric: normal affect, normal mood. Skin: Dry, intact, warm. Normal color. No rashes. Internal Medicine - CN: Reslt - Labs CBC & Chem 7: 09/11/18 00:59 09/11/18 00:59 Labs: Short CBC 09/11/18 Range/Units 00:59 WBC 14.2 H (4.3-11.1) K/mcL Hgb 11.2 L (12.9-16.9) g/dL Hct 34.9 L (37.5-50.1) % Plt Count 169 (140-400) K/mcL Neutrophils # 11.0 H (1.6-8.9) K/mcL BMP 09/11/18 00:59 Sodium 134 L Potassium 4.0 Chloride 103 Carbon Dioxide 26 BUN 27 H Creatinine 1.01 Glucose 136 H Calcium 8.2 L - ABG Interpretation ABG results: PT/INR, D-dimer PT 14.1 Seconds (9.4-12.1) H 09/09/18 20:10 - EKG Data Prior EKG available for review: yes - Impressions Impressions Chest CTA 09/11/18 07:58 IMPRESSION: 1. No evidence of acute pulmonary embolism or acute aortic disease. 2. Cardiomegaly and mild pericardial thickening. 3. Worsening infiltrates in the right upper and both lower lobes which may represent an acute infection. 4. Small bilateral pleural effusions. These are new. 5. Some nodularity noted which may be infectious in etiology. A more discrete right upper lobe nodule laterally was also previously seen and may be neoplastic. D/ / 09/11/2018 11:06:24 Eliza Mcdaniel MD / bcarter Interpreting Provider: Eliza Mcdaniel MD Consult Discharge Plan - Plan Referrals: NONE,PCP [Primary Care Provider] -
[2018-09-11] MEDS: *HR* Heparin 5,000 UNIT/ML VIAL IVP PRN (14:17)
[2018-09-11] MEDS: Heparin 25,000 UNIT/250 ML D5W 25,000 UNIT/250 ML IV.SOLN IVC SCH (15:14)
[2018-09-11] MEDS ORDERED: Aminoglycoside Consult 1 EACH MC ONE (15:43)
[2018-09-11] MEDS ORDERED: *HR* Warfarin 2.5 MG TABLET PO ONE ×2 (18:00)
[2018-09-11] MEDS ORDERED: Warfarin perPT PO PRN ×2 (18:00)
[2018-09-12 03:00] LABS: Basophils % 0.2 %; Hematocrit 33.4 % (37.5-50.1); Hemoglobin 11.1 g/dL (12.9-16.9); Immature Granulocytes % 0.8 % (0-4); Lymphocytes % 6.2 %; Mean Corpuscular HGB Conc 33.2 g/dL (31.6-35.5); Mean Corpuscular Hemoglobin 30.2 pg (28.0-33.3); Mean Platelet Volume 10.4 fL (9.4-12.4); Monocytes # 1.7 K/mcL (0.0-1.3); Platelet Count 179 K/mcL (140-400); Red Blood Count 3.67 M/mcL (4.19-5.50); Red Cell Distribution Width 14.1 % (11.5-14.5); Segmented Neutrophils % 81.8 %; White Blood Count 15.8 K/mcL (4.3-11.1)
[2018-09-12 03:17] LABS: BUN/Creatinine Ratio 23 (6-26); Blood Urea Nitrogen 19 mg/dL (8-23); Calcium 8.4 mg/dL (8.6-10.3); Carbon Dioxide 23 mEq/L (23-29); Chloride 104 mEq/L (98-107); Glucose 116 mg/dL (70-105); Osmolality,Calculated 279 (280-300); Potassium 3.5 mEq/L (3.5-5.1); Sodium 133 mEq/L (136-145); eGFR For African Americans > 60 (> 60); eGFR For Non-African Americans > 60 (> 60)
[2018-09-12] MEDS: *HR* Heparin 5,000 UNIT/ML VIAL IVP PRN (03:42)
[2018-09-12] MEDS: Aspirin 81 MG TAB.CHEW PO SCH (09:58)
[2018-09-12] MEDS: *HR* Ticagrelor 90 MG TABLET PO SCH ×2 (09:58→20:57)
[2018-09-12 10:20] LABS: Heparin anti-factor XA UFH 0.39 IU/mL (0.30-0.70)
[2018-09-12] MEDS ORDERED: *HR* Metoprolol 5 MG/5 ML VIAL IVP ONE (11:07)
--- NOTE | 2018-09-12 11:13 | Cardiology Progress Note ---
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 [facility] 09/10/18: s/p PCI with JAMES x3 to proximal and mid RCA. TTE 09/10/18: EF 60%, RV systolic function moderately reduced by doppler, mild MR, mild-moderate TR, mild DC Suspect RV infarct, hypotension improving, will decrease IVF to 50 mL/hr. Continue DAPT (asa + brilinta); started BB now that BP has improved--increase for HR control, continue statin. Continue cardiac rehab. VTE prophylaxis: heparin gtt. Qualifiers: Myocardial infarction type: non-ST elevation myocardial infarction Qualified Code(s): I21.4 - Non-ST elevation (NSTEMI) myocardial infarction (2) Afib Current Visit: Yes Status: Acute Suspected new onset afib in the setting of AMI. No prior hx or symptoms reported. PAF noted overnight. Currently A-Fib RVR at bedside, HR 130s. On Lopressor 25mg BID. Will increase to 50mg BID and give dose of IV Lopressor 5mg once. CHA2Ds Vasc=4 (age, HTN, CAD). Discussed with Dr. Huertas; continue Heparin gtt now (standard protocol). Started Coumadin with pharmacy to dose, goal INR 2-3 vs. Will complete outpatient referral to Coumadin clinic Qualifiers: Atrial fibrillation type: paroxysmal Qualified Code(s): I48.0 - Paroxysmal atrial fibrillation (3) Pneumonia Current Visit: Yes Status: Acute Concern for developing PNA on CT scan completed yesterday AM. Low grade temp yesterday AM, WBC elevated. Consulted Hospitalist team for management. Appreciate their recs. Qualifiers: Pneumonia type: due to unspecified organism Laterality: bilateral Lung location: lower lobe of lung Qualified Code(s): J18.1 - Lobar pneumonia, unspecified organism Discussion w patient/family: The assessment and plan as outlined above was discussed with the patient and/or family members who expressed understanding and agreement. All questions were answered. Thank you for involving us in the care of your patient. Please call with any questions. I will discuss all the above with Dr. Huertas and make changes as necessary. Subjective Principal diagnosis: AMI Interval history: Reports not feeling well this AM. Reports palpitations and midsternal chest "thumping", worse with coughing. Objective Vital Signs Temp Pulse Resp BP Pulse Ox 09/12/18 06:32 98.5 F 130 14 130/86 97 09/12/18 04:22 99 F 90 16 125/89 95 09/11/18 23:41 98.0 F 88 20 144/80 96 09/11/18 18:49 98.2 F 102 22 156/76 90 09/11/18 16:00 120 32 147/75 93 09/11/18 15:37 98.1 F 122 23 128/84 95 09/11/18 14:00 105 32 148/78 94 09/11/18 13:00 107 31 154/107 94 09/11/18 12:00 89 21 89 09/11/18 11:36 81 Intake and Output 09/11/18 09/12/18 09/12/18 23:59 07:59 15:59 Intake Total 352 / 2392.4 176 / 296 120 / 296 Output Total 400 / 1450 1215 / 1590 375 / 1590 Balance -48 / 942.4 -1039 / -1294 -255 / -1294 Intake: IV Fluids 352 / 1492.4 176 / 176 Heparin 25,000 UNIT/250 ML D5W 2 / 2 76 / 76 25,000 unit In 250 ml @ 14 UNIT /KG/HR 9.534 mls/hr IVC .Q24H GEOVANNA Rx#:[id number] Zosyn 3.375 GM In 0.9 % Sodium 100 / 100 100 / 100 Chloride 100 ML @ 25 mls/hr IVPB Q8H GEOVANNA Rx#:[id number] Vancocin 1,000 MG In 0.9 % 250 / 250 Sodium Chloride 250 ML @ 167 mls/hr IVPB Q24H GEOVANNA Rx#: [id number] Oral 0 / 900 0 / 120 120 / 120 Output: Urine 400 / 1450 1215 / 1590 375 / 1590 Other: Meal Breakfast Percent of Meal Consumed 25% Stool Size Large Large Stool Consistency soft soft formed Stool Characteristics Normal for Patient Stool Color Brown Yellow # Voids 1 # Bowel Movements 1 Weight 72.5 kg Patient Weight 09/12/18 23:59 Weight 72.5 kg General: Conversant, No Apparent Distress HEENT: Atraumatic, Normocephaly, Mucus Membranes Moist Neck: No JVD, Normal carotid pulses Cardiac: Other (irregularly irregular) Lungs: Other (diminished) Neuro: Alert and responsive, No focal deficits noted Abdomen: Soft, Non-Tender Skin: No rashes noted on visualized skin Musculoskeletal: No Chest Wall Tenderness Extremities: No Clubbing, No Cyanosis, No Edema, Normal Pulses Results 09/12/18 02:34 09/12/18 02:34 Lab Results 09/12/18 09/12/18 02:34 02:34 WBC 15.8 H Hgb 11.1 L Hct 33.4 L Plt Count 179 Sodium 133 L Potassium 3.5 Chloride 104 Carbon Dioxide 23 BUN 19 Creatinine 0.83 Glucose 116 H Calcium 8.4 L Short CBC 09/12/18 Range/Units 02:34 WBC 15.8 H (4.3-11.1) K/mcL Hgb 11.1 L (12.9-16.9) g/dL Hct 33.4 L (37.5-50.1) % Plt Count 179 (140-400) K/mcL Neutrophils # 13.0 H (1.6-8.9) K/mcL BMP 09/12/18 Range/Units 02:34 Sodium 133 L (136-145) mEq/L Potassium 3.5 (3.5-5.1) mEq/L Chloride 104 (98-107) mEq/L Carbon Dioxide 23 (23-29) mEq/L BUN 19 (8-23) mg/dL Creatinine 0.83 (0.70-1.30) mg/dL Glucose 116 H (70-105) mg/dL Calcium 8.4 L (8.6-10.3) mg/dL Impressions Chest CTA 09/11/18 07:58 IMPRESSION: 1. No evidence of acute pulmonary embolism or acute aortic disease. 2. Cardiomegaly and mild pericardial thickening. 3. Worsening infiltrates in the right upper and both lower lobes which may represent an acute infection. 4. Small bilateral pleural effusions. These are new. 5. Some nodularity noted which may be infectious in etiology. A more discrete right upper lobe nodule laterally was also previously seen and may be neoplastic. D/ / 09/11/2018 11:06:24 Eliza Mcdaniel MD / navarro Interpreting Provider: Eliza Mcdaniel MD Chest X-Ray 09/09/18 17:50 IMPRESSION: Cardiomegaly with mild CHF. D/ / 09/09/2018 18:45:27 Corey Gomez MD / [email or web address] Interpreting Provider: Corey Gomez MD CT Dissection 09/09/18 18:08 IMPRESSION: CT chest: No evidence of intramural hematoma or aortic dissection flap. Cardiomegaly and coronary calcifications. 1 cm right upper lobe nodule. Subpleural increased interstitial thickening could be a chronic process. Emphysematous changes or edema or fibrosis/scarring may be considered.. CT abdomen pelvis: No acute inflammatory process within the abdomen pelvis. Fat containing umbilical hernia. Mild bladder wall thickening may relate to underdistention. Please correlate with urinalysis findings. Mild colonic diverticulosis Fleischner Society guidelines for follow-up and management of incidentally detected pulmonary nodules: Single Solid Nodule: Nodule size less than 6 mm In a low-risk patient, no routine follow-up. In a high-risk patient, optional CT at 12 months. Nodule size equals 6-8 mm In a low-risk patient, CT at 6-12 months, then consider CT at 18-24 months. In a high-risk patient, CT at 6-12 months, then CT at 18-24 months. Nodule size greater than 8 mm In a low-risk patient, consider CT at 3 months, PET/CT, or tissue sampling. In a high-risk patient, consider CT at 3 months, PET/CT, or tissue sampling. Multiple Solid Nodules: Nodule size less than 6 mm In a low-risk patient, no routine follow-up. In a high-risk patient, optional CT at 12 months. Nodule size equals 6-8 mm In a low-risk patient, CT at 3-6 months, then consider CT at 18-24 months. In a high-risk patient, CT at 3-6 months, then CT at 18-24 months. Nodule size greater than 8 mm In a low-risk patient, CT at 3-6 months, then consider CT at 18-24 months. In a high-risk patient, CT at 3-6 months, then CT at 18-24 months. - Low risk patients include individuals with minimal or absent history of smoking and other known risk factors. - High risk patients include individuals with a history or smoking or known risk factors. Radiology 2017 http://pubs.rsna.org/doi/full/10.1148/radiol.[email or web address] D/ / Per Pierson / Per Pierson Interpreting Provider: Per Pierson Echocardiogram 09/10/18 07:00 Impressions: LVEF 60%. Indeterminate diastolic function. Mild concentric left ventricular hypertrophy. Right ventricular size is normal. Systolic function is moderately reduced by Doppler/TAPSE. Subcostal view not visualized. Mild mitral regurgitation. Mild-moderate tricuspid regurgitation. Mild pulmonic regurgitation. No pulmonary hypertension. Left Ventricular Wall Motion: Rest Echo Findings All wall segments showed normal motion. Findings: Study Quality * Technically adequate exam but without subcostal view. ECG Findings * Atrial fibrillation with intermittent RVR. Left Ventricle * LVEF 60%. * Indeterminate diastolic function. * Mild concentric left ventricular hypertrophy. Right Ventricle * Right ventricular size is normal. Systolic function is moderately reduced by Doppler/TAPSE. Left Atrium * Moderately dilated left atrium. Right Atrium * Normal right atrial size. Aortic Valve * No aortic regurgitation. * Trileaflet aortic valve. * Mildly thickened aortic valve leaflets. * No aortic stenosis. Mitral Valve * Mild mitral annular calcification * No mitral stenosis. * Mild mitral regurgitation. * Mildly calcified mitral valve leaflets. Tricuspid Valve * Normal tricuspid valve structure. * Mild-moderate tricuspid regurgitation. Pulmonic Valve * Pulmonic valve is not well visualized. * No pulmonic stenosis. * Mild pulmonic regurgitation. Pulmonary Artery * Pulmonary artery not well visualized. Aorta * Normally sized aortic root. Pericardium * There is no pericardial effusion present. Interatrial Septum * Interatrial septum not well evaluated. IVC * The IVC is not well evaluated. Chest CTA 09/11/18 07:58 IMPRESSION: 1. No evidence of acute pulmonary embolism or acute aortic disease. 2. Cardiomegaly and mild pericardial thickening. 3. Worsening infiltrates in the right upper and both lower lobes which may represent an acute infection. 4. Small bilateral pleural effusions. These are new. 5. Some nodularity noted which may be infectious in etiology. A more discrete right upper lobe nodule laterally was also previously seen and may be neoplastic. D/ / 09/11/2018 11:06:24 Eliza Mcdaniel MD / bcarter Interpreting Provider: Eliza Mcdaniel MD Active Medications Acetaminophen (Tylenol) 650 mg PO Q6HR PRN PRN Reason: Mild Pain Stop: 03/11/19 21:32 Hydrocodone Bitart/Acetaminophen ([place]rie 5-325 Mg) 1 tab PO Q4HR PRN PRN Reason: Moderate Pain Stop: 03/11/19 21:32 Aspirin (Aspirin) 81 mg PO DAILY GE[facility]NA Stop: 03/12/19 09:01 Last Admin: 09/12/18 09:58 Dose: 81 mg Documented by: Diphenhydramine HCl (Benadryl) 25 mg PO HS PRN PRN Reason: Insomnia Stop: 03/11/19 21:32 Heparin Sodium (Porcine) (Heparin) 4,800 unit 70 unit/kg (4800 unit) IVP Q6HR PRN PRN Reason: SEE COMMENTS Stop: 03/12/19 11:07 Heparin Sodium (Porcine) (Heparin) 2,400 unit 35 unit/kg (2400 unit) IVP Q6H PRN PRN Reason: SEE COMMENTS Stop: 03/12/19 11:07 Last Admin: 09/12/18 03:42 Dose: 2,400 unit Documented by: Hydralazine HCl (Hydralazine) 20 mg IVP Q6HR PRN PRN Reason: Hypertension Stop: 03/11/19 22:03 Heparin Sodium/Dextrose (Heparin 25,000 Unit/250 Ml D5w) 25,000 unit in 250 mls @ 9.534 mls/hr IVC .Q24H GEOVANNA; Protocol Stop: 03/12/19 11:16 Last Titration: 09/12/18 03:42 Dose: 16.54 unit/kg/hr, 11.3 mls/hr Documented by: Piperacillin Sod/Tazobactam (Sod 3.375 gm/ Sodium Chloride) 100 mls @ 25 mls/hr IVPB Q8H GEOVANNA Stop: 03/13/19 15:01 Last Admin: 09/12/18 06:04 Dose: 25 mls/hr Documented by: Sodium Chloride (0.9 % Sodium Chloride) 1,000 mls @ 50 mls/hr IVC .Q20H GEOVANNA Stop: 03/13/19 23:46 Last Admin: 09/11/18 23:52 Dose: 50 mls/hr Documented by: Metoprolol Tartrate (Lopressor) 50 mg PO BID [facility] Stop: 03/14/19 21:01 Ondansetron HCl (Zofran) 4 mg IVP Q8H PRN PRN Reason: Nausea And Vomiting Stop: 03/11/19 20:59 Rosuvastatin Calcium (Crestor) 40 mg PO HS [facility] Stop: 03/11/19 21:01 Last Admin: 09/11/18 20:34 Dose: 40 mg Documented by: Ticagrelor (Brilinta) 90 mg PO BID [facility] Stop: 03/12/19 09:01 Last Admin: 09/12/18 09:58 Dose: 90 mg Documented by: Warfarin Sodium (Coumadin Perpt) 1 each PO DAILY@1800 PRN; Protocol PRN Reason: SEE COMMENTS Stop: 03/13/19 18:01 - Imaging and Cardiology Echo: report reviewed Cardiac cath: report reviewed - EKG Interpretation EKG results cardiology: other (12 hr tele AVG HR 111, A-Fib.) Consult Discharge Plan - Plan Referrals: NONE,PCP [Primary Care Provider] -
[2018-09-12 12:06] LABS: INR 1.4; Prothrombin Time 16.3 Seconds (9.4-12.1)
--- NOTE | 2018-09-12 12:06 | Internal Med Progress Note ---
Hospitalist Progress Note - Encounter Date of Encounter: 09/12/18 Time of Encounter: 10:00 - Subjective Interval History: No major events overnight. Patient was seen this a.m. He denied fever, chills or night sweats. He has no nausea, vomiting or abdominal pain. Patient denied chest pain, shortness of breath or palpitation. - Exam Vitals: Temp Pulse Resp BP Pulse Ox 98.5 F 130 14 130/86 97 09/12/18 06:32 09/12/18 06:32 09/12/18 06:32 09/12/18 06:32 09/12/18 06:32 Exam: General: Patient is alert, oriented 3. Head: Atraumatic, normal inspection, normocephalic. Eye: EOMI, PERRLA, no scleral icterus noted. ENT: Mucous membranes moist. No odontogenic infection noted. Neck: Normal inspection, no meningismus. Respiratory: Bibasilar crackles. Breathing is not labored. Cardiovascular: Tachycardic, irregular rhythm No murmurs, rubs, or gallops. GI: Umbilical hernia, Soft, nondistended, normal bowel sounds. Extremities:No joint swelling, pedal edema, or tenderness noted. Neurological: Alert, oriented 3, no focal deficits. Psychiatric: normal affect, normal mood. Skin: Dry, intact, warm. Normal color. No rashes. - Assessment and Plan (1) Acute DC Current Visit: Yes Status: Resolved (2) Afib Current Visit: Yes Status: Acute (3) Lung nodule Current Visit: Yes Status: Chronic (4) NSTEMI (non-ST elevated myocardial infarction) Current Visit: Yes Status: Acute (5) Pneumonia Current Visit: Yes Status: Acute - Summary of Assessment and Plan Summary of Assessment and Plan: 83-year-old male with history of HTN who came into the hospital due to chest pain. Patient was emergently taken to [facility] successful PCI 3 placement in the RCA. We are consulted for the management of his pneumonia. Pneumonia: - Health care versus aspiration, leukocytosis worsened today. Patient is afebrile, tachycardic and hemodynamically stable. - blood cultures are pending, Legionella and streptococcus antigens are negative, MRSA swab is -. ProCalcitonin level 0.81 - Patient is hemodynamically stable, afebrile. - We will DC vancomycin and continue Zosyn DAY 2 awaiting cultures. - Check CBC tomorrow NSTEMI status post PCI: - Management as per cardiology - On aspirin and BRILINTA. Continue BB and crestor. A. fib with RVR: - Management as per cardiology. On heparin drip and Coumadin - Agree with IV fluids. HTN: - Management as per cardiology Lung nodule: - Patient has a remote history of smoking. Follow-up CT scan at outpatient. DVT prophylaxis: On heparin drip - Time Spent with Patient Total time spent is greater than 50% in coordination of care (as documented) at patient's floor/unit and/or counseling patient: Plan of Care Discussed with: patient Internal Medicine: Result - Labs CBC & Chem 7: 09/12/18 02:34 09/12/18 02:34 Labs: Short CBC 09/12/18 Range/Units 02:34 WBC 15.8 H (4.3-11.1) K/mcL Hgb 11.1 L (12.9-16.9) g/dL Hct 33.4 L (37.5-50.1) % Plt Count 179 (140-400) K/mcL Neutrophils # 13.0 H (1.6-8.9) K/mcL BMP 09/12/18 02:34 Sodium 133 L Potassium 3.5 Chloride 104 Carbon Dioxide 23 BUN 19 Creatinine 0.83 Glucose 116 H Calcium 8.4 L - ABG Interpretation ABG results: PT/INR, D-dimer PT 14.1 Seconds (9.4-12.1) H 09/09/18 20:10 Consult Discharge Plan - Plan Referrals: NONE,PCP [Primary Care Provider] - (1) Acute DC Qualifiers: Myocardial infarction type: non-ST elevation myocardial infarction Qualified Code(s): I21.4 - Non-ST elevation (NSTEMI) myocardial infarction (2) Afib Qualifiers: Atrial fibrillation type: paroxysmal Qualified Code(s): I48.0 - Paroxysmal atrial fibrillation (5) Pneumonia Qualifiers: Pneumonia type: due to unspecified organism Laterality: bilateral Lung locat ion: lower lobe of lung Qualified Code(s): J18.1 - Lobar pneumonia, unspecified organism
[2018-09-12] MEDS ORDERED: *HR* Warfarin 2 MG TABLET PO ONE (18:00)
[2018-09-12] MEDS: 0.9 % Sodium Chloride 1,000 ML IVC SCH (20:57)
[2018-09-12] MEDS: Heparin 25,000 UNIT/250 ML D5W 25,000 UNIT/250 ML IV.SOLN IVC SCH (21:16)
[2018-09-13 04:41] LABS: Basophils % 0.2 %; Eosinophils % 0.1 %; Hematocrit 34.8 % (37.5-50.1); Hemoglobin 11.4 g/dL (12.9-16.9); Immature Granulocytes % 0.6 % (0-4); Lymphocytes # 0.8 K/mcL (0.6-4.6); Mean Corpuscular HGB Conc 32.8 g/dL (31.6-35.5); Mean Corpuscular Hemoglobin 30.2 pg (28.0-33.3); Mean Corpuscular Volume 92.1 fL (83.0-100.0); Mean Platelet Volume 10.4 fL (9.4-12.4); Monocytes # 1.4 K/mcL (0.0-1.3); Monocytes % 11.3 %; Neutrophils # 10.4 K/mcL (1.6-8.9); Platelet Count 226 K/mcL (140-400); Red Blood Count 3.78 M/mcL (4.19-5.50); Red Cell Distribution Width 14.2 % (11.5-14.5); Segmented Neutrophils % 81.8 %; White Blood Count 12.7 K/mcL (4.3-11.1)
[2018-09-13 04:43] LABS: INR 1.5; Prothrombin Time 16.7 Seconds (9.4-12.1)
[2018-09-13] MEDS: *HR* Ticagrelor 90 MG TABLET PO SCH (08:58)
[2018-09-13] MEDS: Aspirin 81 MG TAB.CHEW PO SCH (08:58)
--- NOTE | 2018-09-13 10:16 | Discharge Summary ---
Orders not resulted at time of discharge: Pending orders 09/11/18 14:33 Culture,Blood [] Stat Date of Encounter: 09/13/18 Time of Encounter: 10:05 - Discharge Diagnosis (1) Acute MT Priority: Primary Status: Resolved Qualifiers: Myocardial infarction type: non-ST elevation myocardial infarction Qualified Code(s): I21.4 - Non-ST elevation (NSTEMI) myocardial infarction (2) Afib Priority: Secondary Status: Acute Qualifiers: Atrial fibrillation type: paroxysmal Qualified Code(s): I48.0 - Paroxysmal atrial fibrillation (3) Pneumonia Priority: Secondary Status: Acute Qualifiers: Pneumonia type: due to unspecified organism Laterality: bilateral Lung location: lower lobe of lung Qualified Code(s): J18.1 - Lobar pneumonia, unspecified organism - Hospital Course Hospital course: Mr. Avina is a 83 year old male that presented as an NSTEMI. He had rising troponin and ongoing chest pain despite medical therapy. Peak troponin 14.15. [facility] 09/10/18: s/p PCI with JAMES x3 to proximal and mid RCA. TTE 09/10/18: EF 60%, RV systolic function moderately reduced by doppler, mild MR, mild-moderate TR, mild DC. Suspect RV infarct, hypotension improved with IV fluids. Continue DAPT (asa + brilinta); started BB, statin. He developed suspected new onset afib in the setting of AMI. No prior hx or symptoms reported. Currently SR. CHA2Ds Vasc=4 (age, HTN, CAD). Discussed with Dr. Huertas. Started Coumadin with pharmacy to dose, goal INR 2-3 vs. Completed outpatient referral to Coumadin clinic. INR 1.5 today. On triple therapy. Instructed to monitor closely for any bleeding. Will plan to stop ASA in 1 month to reduce bleeding risk. Hospitalist was consulted d/t concern for developing PNA on CT scan with low grade temp and elevated WBC. Has been treated with IV antibiotics. Now afebrile with improving WBC. Discussed with hospitalist. Will send home on 5 day course of Levaquin 750mg daily and a 5 day course of Flagyl 500mg TID. Will coordinate outpt follow-up in 1 week. INR to be checked Sunday--will monitor closely given antibiotics on Coumadin. Labs and vitals stable. D/C home in stable condition. - Time Spent with Patient Total time spent providing and/or coordinating discharge services: Less than 30 minutes - Discharge Medications Prescriptions: New Aspirin 81 mg PO DAILY #30 tab.chew Ticagrelor [Brilinta] 90 mg PO BID #60 tablet Warfarin [Coumadin] 2 mg PO 1800 #14 tablet Rosuvastatin [Crestor] 40 mg PO HS #30 tablet metroNIDAZOLE [Flagyl] 500 mg PO TID 5 Days #15 tablet levoFLOXacin [Levaquin] 750 mg PO DAILY 5 Days #5 tablet Metoprolol [Lopressor] 50 mg PO BID #60 tablet Nitroglycerin 0.4 mg SL PRN PRN #30 tab.subl PRN Reason: Chest Pain Discontinued Metoprolol Succinate [Toprol Xl] 100 mg PO DAILY Simvastatin [Zocor] 20 mg PO HS Valsartan 320 mg PO DAILY Amlodipine Besylate 5 mg PO DAILY Furosemide [Lasix] 20 mg PO DAILY Potassium Chloride [Klor-Con 10] 10 meq PO DAILY Home Medications: Aspirin 81 mg PO DAILY #30 tab.chew 09/13/18 [Rx] Metoprolol [Lopressor] 50 mg PO BID #60 tablet 09/13/18 [Rx] Nitroglycerin 0.4 mg SL PRN PRN #30 tab.subl 09/13/18 [Rx] Rosuvastatin [Crestor] 40 mg PO HS #30 tablet 09/13/18 [Rx] Ticagrelor [Brilinta] 90 mg PO BID #60 tablet 09/13/18 [Rx] Warfarin [Coumadin] 2 mg PO 1800 #14 tablet 09/13/18 [Rx] levoFLOXacin [Levaquin] 750 mg PO DAILY 5 Days #5 tablet 09/13/18 [Rx] metroNIDAZOLE [Flagyl] 500 mg PO TID 5 Days #15 tablet 09/13/18 [Rx] Allergies/Adverse Reactions: Allergy/AdvReac Type Severity Reaction Status Date / Time No Known Allergies Allergy Verified 06/28/17 10:19 Date of admission: 09/09/18 20:58 Primary care physician: PCP NONE Consults: 09/09/18 20:58 Consult to Cardiac Rehabilitation-Phase1 [CONS] Routine Comment: Reason for Consult: AMI Call Completed: Yes Consult to Nurse Navigator [CONS] Routine Comment: 09/09/18 21:00 Consult to Cardiac Rehabilitation-Phase1 [CONS] Routine Comment: Reason for Consult: post op PCI Call Completed: Yes 09/11/18 11:08 Consult to Hospitalist [CONS] Routine Consulting Provider: [facility] Reason for Consult: suspected PNA Call Completed: Yes Discharging clinician: Mehdi Cotter Anticipated date of discharge: 09/13/18 Physical Examination Vital Signs, Last 4 Hours Temp Pulse Resp BP Pulse Ox 09/13/18 07:33 98.3 F 72 18 130/80 95 Vital Signs Temp Pulse Resp BP Pulse Ox 09/13/18 07:33 98.3 F 72 18 130/80 95 09/13/18 01:11 98.4 F 76 22 147/79 93 09/12/18 21:08 92 09/12/18 20:23 98.8 F 78 18 139/89 94 09/12/18 15:21 99.0 F 67 14 125/75 92 09/12/18 12:00 98.2 F 75 14 128/98 95 Intake and Output 09/12/18 09/13/18 09/13/18 23:59 07:59 15:59 Intake Total 1479 / 1908 100 / 220 120 / 220 Output Total 400 / 2190 0 / 350 350 / 350 Balance 1079 / -282 100 / -130 -230 / -130 Intake: IV Fluids 1239 / 1548 100 / 100 0.9 % Sodium Chloride 1,000 ML 1000 / 1000 @ 50 mls/hr IVC .Q20H GEOVANNA Rx#: [id number] Heparin 25,000 UNIT/250 ML D5W 139 / 248 25,000 unit In 250 ml @ 14 UNIT /KG/HR 9.534 mls/hr IVC .Q24H GEOVANNA Rx#:[id number] Zosyn 3.375 GM In 0.9 % Sodium 100 / 300 100 / 100 Chloride 100 ML @ 25 mls/hr IVPB Q8H GEOVANNA Rx#:[id number] Oral 240 / 360 0 / 120 120 / 120 Output: Urine 400 / 2190 0 / 350 350 / 350 Other: Meal Dinner Breakfast Percent of Meal Consumed 25% 50% General: Conversant, No Apparent Distress HEENT: Atraumatic, Normocephaly, Mucus Membranes Moist Neck: No JVD, Normal carotid pulses Cardiac: Reg Rate and Rhythm, Normal S1 and S2, No Murmur Lungs: Normal Breath Sounds, No Wheeze, Rales, Rhonchi Neuro: Alert and responsive, No focal deficits noted Abdomen: Soft, Non-Tender Skin: No rashes noted on visualized skin Musculoskeletal: No Chest Wall Tenderness Extremities: No Clubbing, No Cyanosis, No Edema, Normal Pulses - Patient Status Disposition: Home, Self-Care Condition: Fair Functional capacity at discharge: independent ambulation Overall status at discharge: patient is progressing back to baseline - Ambulatory Orders Ambulatory Orders: Prothrombin Time INR [COAG] Time Frame: 09/16/18, Facility: [facility], Location: Lab - Discharge Instructions Follow Up With: NONE,PCP [Primary Care Provider] - Additional Instructions: RISK FACTORS: STOP SMOKING: If you smoke, STOP. Smoking or tobacco use significantly increases your risk of heart disease because nicotine causes the arteries to narrow or constrict. It also causes fats to stick to the artery. Your chances of having a heart attack are greatly increased if you continue to smoke. For more information, call the education line for smoking cessation 9-397-OXWVOGH EAT A LOW FAT/CHOLESTEROL/SODIUM DIET: This diet may help reduce your chances of having a heart attack. LIFTING: Avoid lifting anything more than 10 pounds for 5-7 days Prior to straining, laughing, sneezing and/or coughing, apply manual pressure directly over insertion site. ACTIVITY: You may walk or climb stairs as tolerated You can resume sexual activity as tolerated In general, you are encouraged to engage in a minimum of 30 minutes or more of moderate intensity physical activity, such as brisk walking, daily or at least 3-4 times weekly BATHING Do not submerge the site into water (bath tub, hot tub, swimming pool) for 1 week. This can be a source for infection into the blood stream. You may shower after 24 hours SITE CARE: After 24 hours, you may remove the dressing and leave the site open to air. Keep the site clean and dry. Clean gently and pat dry. You can expect bruising and tenderness that gradually resolve within a week or two. Return to work as instructed per your physician Resume driving as instructed per physician Keep all scheduled follow up appointments Resume medications as instructed IMPORTANT: If prescribed a Platelet Aggregation Inhibitor such as, Plavix, Brilinta or Effient: Duration of therapy is minimum one year These medications are often used in combination with Aspirin in prevention of future heart attacks Never discontinue unless consult with your Cytology Teacher STROKE (CVA) Risk factors for a stroke are: Age, cigarette smoking, diabetes, excessive alcohol consumption, family history, high blood pressure, overweight, physical inactivity, prior stroke, heart attack, diagnosis of carotid artery stenosis or other artery disease. Warning signs: Sudden numbness or weakness of the face, arm or leg; especially on one side of the body, sudden confusion, trouble speaking or understanding, sudden trouble seeing in one or both eyes, sudden trouble walking, dizziness, loss of balance or coordination, sudden severe headache with no cause. Call 911 or go to the Emergency Room. CONGESTIVE HEART FAILURE: If you have been diagnosed with Congestive Heart Failure (CHF) and your symptoms return, make an appointment with your physician Weigh yourself daily. Notify your physician if you have a weight gain of two or more pounds in one day or five or more pounds in one week. If you experience any difficulty breathing, please call 911 BLEEDING: Although the risk of bleeding is minimal, it can happen. If you have any bleeding from the site, apply firm pressure above the puncture site for 10-15 minutes. If the bleeding does not stop, continue manual pressure and call 911 CARDIAC REHABILITATION: If you have had a heart attack or cardiac stents placed, please ask your jewel hole cornerer if Cardiac Rehabilitation is right for you. Cardiac Rehabilitation is recommended, beneficial to your health and can improve the following: strengthen your heart, improve ejection fraction, weight reduction, decrease cholesterol levels, lower blood pressure, lower blood sugar, improve stamina and enhance self-image. If you have any questions please call [facility] at [phone]. Contact your physician if: You develop a fever greater than 101 degrees Fahrenheit Your site becomes reddened or has any drainage You have an increase in pain or burning at the site or if a large knot forms at the site. If you experience chest pain, shortness of breath, dizziness, or extreme tiredness, stop the activity and rest. Please notify your physicians office if you experience any of these symptoms and they are not relieved by rest please call 911! - Diet and Activity Activity: increase activity as tolerated Diet: low fat, low cholesterol
[2018-09-13 10:28] VITALS: BP 123/74
--- NOTE | 2018-09-13 12:01 | Internal Med Progress Note ---
Hospitalist Progress Note - Encounter Date of Encounter: 09/13/18 Time of Encounter: 10:00 - Subjective Interval History: No major events overnight. Patient was seen this a.m. He denied fever, chills or night sweats. He has no nausea, vomiting or abdominal pain. Patient denied chest pain, shortness of breath or palpitation. - Exam Vitals: Temp Pulse Resp BP Pulse Ox 98.3 F 72 16 123/74 96 09/13/18 10:26 09/13/18 10:09/13/18 10:09/13/18 10:09/13/18 10:26 Exam: General: Patient is alert, oriented 3. Head: Atraumatic, normal inspection, normocephalic. Eye: EOMI, PERRLA, no scleral icterus noted. ENT: Mucous membranes moist. No odontogenic infection noted. Neck: Normal inspection,. Respiratory: Bibasilar crackles. Breathing is not labored. Cardiovascular: Rate and rhythm GI: Umbilical hernia, Soft, nondistended, normal bowel sounds. Extremities:No joint swelling, pedal edema, or tenderness noted. Neurological: Alert, oriented 3, no focal deficits. Psychiatric: normal affect, normal mood. Skin: Dry, intact, warm. Normal color. No rashes. - Assessment and Plan (1) Acute RI Current Visit: Yes Status: Resolved (2) Afib Current Visit: Yes Status: Acute (3) Lung nodule Current Visit: Yes Status: Chronic (4) NSTEMI (non-ST elevated myocardial infarction) Current Visit: Yes Status: Acute (5) Pneumonia Current Visit: Yes Status: Acute - Summary of Assessment and Plan Summary of Assessment and Plan: 83-year-old male with history of HTN who came into the hospital due to chest pain. Patient was emergently taken to [facility] successful PCI 3 placement in the RCA. We are consulted for the management of his pneumonia. Pneumonia: - Health care versus aspiration, leukocytosis trended down.. Patient is afebrile, and hemodynamically stable. - blood cultures are negative so far, Legionella and streptococcus antigens are negative, MRSA swab is -. - Guided discharge the patient on Levaquin and Flagyl to treat for both health care and aspiration PNA. NSTEMI status post PCI: - Management as per cardiology - On aspirin and BRILINTA. Continue BB and crestor. A. fib with RVR: - Management as per cardiology. On heparin drip and Coumadin - Agree with IV fluids. HTN: - Management as per cardiology Lung nodule: - Patient has a remote history of smoking. Follow-up CT scan at outpatient. D/W him. DVT prophylaxis: On Coumadin - Time Spent with Patient Total time spent is greater than 50% in coordination of care (as documented) at patient's floor/unit and/or counseling patient: Internal Medicine: Result - Labs CBC & Chem 7: 09/13/18 04:00 09/12/18 02:34 Labs: Short CBC 09/13/18 Range/Units 04:00 WBC 12.7 H (4.3-11.1) K/mcL Hgb 11.4 L (12.9-16.9) g/dL Hct 34.8 L (37.5-50.1) % Plt Count 226 (140-400) K/mcL Neutrophils # 10.4 H (1.6-8.9) K/mcL - ABG Interpretation ABG results: PT/INR, D-dimer PT 16.7 Seconds (9.4-12.1) H 09/13/18 04:00 Consult Discharge Plan - Plan Instructions: Heart Failure (DC), Atrial Fibrillation (DC), Chest Pain (DC), Chronic Hypertension (DC), Pneumonia (DC) Additional Instructions: RISK FACTORS: STOP SMOKING: If you smoke, STOP. Smoking or tobacco use significantly increases your risk of heart disease because nicotine causes the arteries to narrow or constrict. It also causes fats to stick to the artery. Your chances of having a heart attack are greatly increased if you continue to smoke. For more information, call the education line for smoking cessation 8-831-XFVRJMX EAT A LOW FAT/CHOLESTEROL/SODIUM DIET: This diet may help reduce your chances of having a heart attack. LIFTING: Avoid lifting anything more than 10 pounds for 5-7 days Prior to straining, laughing, sneezing and/or coughing, apply manual pressure directly over insertion site. ACTIVITY: You may walk or climb stairs as tolerated You can resume sexual activity as tolerated In general, you are encouraged to engage in a minimum of 30 minutes or more of moderate intensity physical activity, such as brisk walking, daily or at least 3-4 times weekly BATHING Do not submerge the site into water (bath tub, hot tub, swimming pool) for 1 week. This can be a source for infection into the blood stream. You may shower after 24 hours SITE CARE: After 24 hours, you may remove the dressing and leave the site open to air. Keep the site clean and dry. Clean gently and pat dry. You can expect bruising and tenderness that gradually resolve within a week or two. Return to work as instructed per your physician Resume driving as instructed per physician Keep all scheduled follow up appointments Resume medications as instructed IMPORTANT: If prescribed a Platelet Aggregation Inhibitor such as, Plavix, Brilinta or Effient: Duration of therapy is minimum one year These medications are often used in combination with Aspirin in prevention of future heart attacks Never discontinue unless consult with your International Controller STROKE (CVA) Risk factors for a stroke are: Age, cigarette smoking, diabetes, excessive alcohol consumption, family history, high blood pressure, overweight, physical inactivity, prior stroke, heart attack, diagnosis of carotid artery stenosis or other artery disease. Warning signs: Sudden numbness or weakness of the face, arm or leg; especially on one side of the body, sudden confusion, trouble speaking or understanding, sudden trouble seeing in one or both eyes, sudden trouble walking, dizziness, loss of balance or coordination, sudden severe headache with no cause. Call 911 or go to the Emergency Room. CONGESTIVE HEART FAILURE: If you have been diagnosed with Congestive Heart Failure (CHF) and your symptoms return, make an appointment with your physician Weigh yourself daily. Notify your physician if you have a weight gain of two or more pounds in one day or five or more pounds in one week. If you experience any difficulty breathing, please call 911 BLEEDING: Although the risk of bleeding is minimal, it can happen. If you have any bleeding from the site, apply firm pressure above the puncture site for 10-15 minutes. If the bleeding does not stop, continue manual pressure and call 911 CARDIAC REHABILITATION: If you have had a heart attack or cardiac stents placed, please ask your professor of social work if Cardiac Rehabilitation is right for you. Cardiac Rehabilitation is recommended, beneficial to your health and can improve the following: strengthen your heart, improve ejection fraction, weight reduction, decrease cholesterol levels, lower blood pressure, lower blood sugar, improve stamina and enhance self-image. If you have any questions please call [facility] at [phone]. Contact your physician if: You develop a fever greater than 101 degrees Fahrenheit Your site becomes reddened or has any drainage You have an increase in pain or burning at the site or if a large knot forms at the site. If you experience chest pain, shortness of breath, dizziness, or extreme tiredness, stop the activity and rest. Please notify your physicians office if you experience any of these symptoms and they are not relieved by rest please call 911! Referrals: NONE,PCP [Primary Care Provider] - Prescriptions: Aspirin 81 mg PO DAILY #30 tab.chew Ticagrelor [Brilinta] 90 mg PO BID #60 tablet Warfarin [Coumadin] 2 mg PO 1800 #14 tablet Rosuvastatin [Crestor] 40 mg PO HS #30 tablet metroNIDAZOLE [Flagyl] 500 mg PO TID 5 Days #15 tablet levoFLOXacin [Levaquin] 750 mg PO DAILY 5 Days #5 tablet Metoprolol [Lopressor] 50 mg PO BID #60 tablet Nitroglycerin 0.4 mg SL PRN PRN #30 tab.subl PRN Reason: Chest Pain (1) Acute RI Qualifiers: Myocardial infarction type: non-ST elevation myocardial infarction Qualified Code(s): I21.4 - Non-ST elevation (NSTEMI) myocardial infarction (2) Afib Qualifiers: Atrial fibrillation type: paroxysmal Qualified Code(s): I48.0 - Paroxysmal atrial fibrillation (5) Pneumonia Qualifiers: Pneumonia type: due to unspecified organism Laterality: bilateral Lung location: lower lobe of lung Qualified Code(s): J18.1 - Lobar pneumonia, unspecified organism
[2018-09-13] MEDS ORDERED: *HR* Warfarin 2.5 MG TABLET PO ONE (18:00)
== END 2018-09-13 15:44 | disposition home or self-care (01) | DRG 246 ==
LOC: ICNU 17:39 → EMEROOARM 17:39 → ICNU 20:51 → 2NENU 09-11 18:44
PROVIDERS: ADMIT Emergency Medicine; ATTEND Internal Medicine Cardiovascular Disease

== ENCOUNTER 2020-09-23 00:58 | Inpatient (IN) ==
[2020-09-23] MEDS ORDERED: Naloxone 0.4 MG/ML INJ IVP PRN (04:37)
[2020-09-23] MEDS ORDERED: Acetaminophen 325 MG TABLET PO PRN (04:37)
[2020-09-23] MEDS ORDERED: *HR* HYDROcodone/Acet 5/325 mg TABLET PO PRN (04:37)
[2020-09-23] MEDS ORDERED: Ondansetron 4 MG/2 ML VIAL IVP PRN (04:37)
[2020-09-23] MEDS ORDERED: Ipratropium/Albuterol Neb 3 ML IH PRN (05:29)
[2020-09-23 05:38] LABS: Basophils # 0.1 K/mcL (0.0-0.2); Basophils % 0.3 %; Hematocrit 48.5 % (37.5-50.1); Hemoglobin 16.8 g/dL (12.9-16.9); Immature Granulocytes % 0.5 % (0-4); Lymphocytes # 1.1 K/mcL (0.6-4.6); Lymphocytes % 5.4 %; Mean Corpuscular HGB Conc 34.6 g/dL (31.6-35.5); Mean Corpuscular Hemoglobin 31.1 pg (28.0-33.3); Mean Corpuscular Volume 89.6 fL (83.0-100.0); Mean Platelet Volume 10.4 fL (9.4-12.4); Monocytes % 10.4 %; Neutrophils # 16.2 K/mcL (1.6-8.9); Platelet Count 197 K/mcL (140-400); Red Blood Count 5.41 M/mcL (4.19-5.50); Red Cell Distribution Width 14.3 % (11.5-14.5); Segmented Neutrophils % 83.4 %; White Blood Count 19.4 K/mcL (4.3-11.1)
[2020-09-23 05:40] LABS: INR 1.4; Prothrombin Time 16.5 Seconds (9.4-12.1)
[2020-09-23 05:49] LABS: Alanine Aminotransferase 16 Units/L (7-52); Albumin 3.4 g/dL (3.5-5.7); Albumin/Globulin Ratio 1.3 (1.1-2.2); Alkaline Phosphatase 60 Units/L (34-104); Aspartate Amino Transferase 26 Units/L (13-39); BUN/Creatinine Ratio 44 (6-26); Bilirubin,Total 0.8 mg/dL (0.3-1.0); Blood Urea Nitrogen 44 mg/dL (8-23); Calcium 10.1 mg/dL (8.6-10.3); Carbon Dioxide 36 mEq/L (23-29); Chloride 96 mEq/L (98-107); Globulin 2.6 g/dL (2.4-3.5); Glucose 115 mg/dL (70-105); Magnesium 2.3 mg/dL (1.6-2.6); Osmolality,Calculated 294 (280-300); Phosphorous 2.6 mg/dL (2.7-4.5); Potassium 4.1 mEq/L (3.5-5.1); Sodium 136 mEq/L (136-145); eGFR For African Americans > 60 (> 60); eGFR For Non-African Americans > 60 (> 60)
[2020-09-23] MEDS ORDERED: 0.9 % Sodium Chloride 1,000 ML IVC SCH (06:00)
[2020-09-23 08:10] LABS: Troponin I 0.06 ng/mL (< 0.04)
[2020-09-23 08:41] LABS: VBG HCO3 34 mEq/L (21-27); VBG PCO2 59 mmHg (41-51); VBG PH 7.36 pH Units (7.32-7.42); VBG PO2 120 mmHg (25-50)
[2020-09-23] MEDS: Doxycycline 100 MG in 0.9 % Sodium Chloride Mini Bag 100 ML IVPB SCH (10:29)
[2020-09-23] MEDS: Piperacillin/Tazobactam 3.375 GM in 0.9 % Sodium Chloride Mini Bag 100 ML IVPB SCH ×2 (12:10→20:08)
[2020-09-23] MEDS ORDERED: *HR* Metoprolol 5 MG/5 ML VIAL IVP ONE ×2 (21:52→23:01)
[2020-09-24] MEDS: Doxycycline 100 MG in 0.9 % Sodium Chloride Mini Bag 100 ML IVPB SCH ×2 (00:29→12:23)
[2020-09-24 03:22] LABS: Basophils # 0.1 K/mcL (0.0-0.2); Basophils % 0.3 %; Hematocrit 46.2 % (37.5-50.1); Hemoglobin 15.6 g/dL (12.9-16.9); Immature Granulocytes % 0.4 % (0-4); Lymphocytes # 1.4 K/mcL (0.6-4.6); Lymphocytes % 7.9 %; Mean Corpuscular HGB Conc 33.8 g/dL (31.6-35.5); Mean Corpuscular Hemoglobin 30.6 pg (28.0-33.3); Mean Corpuscular Volume 90.8 fL (83.0-100.0); Mean Platelet Volume 10.3 fL (9.4-12.4); Monocytes # 1.9 K/mcL (0.0-1.3); Monocytes % 11.3 %; Neutrophils # 13.7 K/mcL (1.6-8.9); Platelet Count 170 K/mcL (140-400); Red Blood Count 5.09 M/mcL (4.19-5.50); Red Cell Distribution Width 14.2 % (11.5-14.5); Segmented Neutrophils % 80.1 %; White Blood Count 17.1 K/mcL (4.3-11.1)
[2020-09-24 03:43] LABS: BUN/Creatinine Ratio 36 (6-26); Blood Urea Nitrogen 29 mg/dL (8-23); Calcium 9.3 mg/dL (8.6-10.3); Carbon Dioxide 30 mEq/L (23-29); Chloride 100 mEq/L (98-107); Glucose 101 mg/dL (70-105); Osmolality,Calculated 286 (280-300); Potassium 3.8 mEq/L (3.5-5.1); Sodium 135 mEq/L (136-145); eGFR For African Americans > 60 (> 60); eGFR For Non-African Americans > 60 (> 60)
[2020-09-24] MEDS: Piperacillin/Tazobactam 3.375 GM in 0.9 % Sodium Chloride Mini Bag 100 ML IVPB SCH ×4 (04:24→20:49)
[2020-09-24] MEDS ORDERED: *HR* Metoprolol 5 MG/5 ML VIAL IVP ONE ×2 (08:36→08:47)
[2020-09-25] MEDS: Doxycycline 100 MG in 0.9 % Sodium Chloride Mini Bag 100 ML IVPB SCH ×2 (02:08→14:16)
[2020-09-25] MEDS: Piperacillin/Tazobactam 3.375 GM in 0.9 % Sodium Chloride Mini Bag 100 ML IVPB SCH ×3 (04:54→21:13)
[2020-09-25 05:03] LABS: Basophils # 0.1 K/mcL (0.0-0.2); Basophils % 0.4 %; Eosinophils # 0.2 K/mcL (0.0-0.6); Eosinophils % 1.1 %; Hematocrit 50.5 % (37.5-50.1); Hemoglobin 16.5 g/dL (12.9-16.9); Immature Granulocytes % 0.6 % (0-4); Lymphocytes # 1.5 K/mcL (0.6-4.6); Lymphocytes % 7.5 %; Mean Corpuscular HGB Conc 32.7 g/dL (31.6-35.5); Mean Corpuscular Hemoglobin 30.2 pg (28.0-33.3); Mean Corpuscular Volume 92.5 fL (83.0-100.0); Mean Platelet Volume 10.2 fL (9.4-12.4); Monocytes % 10.3 %; Neutrophils # 15.6 K/mcL (1.6-8.9); Platelet Count 158 K/mcL (140-400); Red Blood Count 5.46 M/mcL (4.19-5.50); Red Cell Distribution Width 14.6 % (11.5-14.5); Segmented Neutrophils % 80.1 %; White Blood Count 19.5 K/mcL (4.3-11.1)
[2020-09-25 05:25] LABS: BUN/Creatinine Ratio 33 (6-26); Blood Urea Nitrogen 26 mg/dL (8-23); Calcium 9.4 mg/dL (8.6-10.3); Carbon Dioxide 29 mEq/L (23-29); Chloride 99 mEq/L (98-107); Glucose 74 mg/dL (70-105); Osmolality,Calculated 283 (280-300); Potassium 4.1 mEq/L (3.5-5.1); Sodium 135 mEq/L (136-145); eGFR For African Americans > 60 (> 60); eGFR For Non-African Americans > 60 (> 60)
[2020-09-26] MEDS: Doxycycline 100 MG in 0.9 % Sodium Chloride Mini Bag 100 ML IVPB SCH ×2 (01:43→13:21)
[2020-09-26] MEDS: Piperacillin/Tazobactam 3.375 GM in 0.9 % Sodium Chloride Mini Bag 100 ML IVPB SCH ×4 (05:44→18:19)
[2020-09-27] MEDS: Doxycycline 100 MG in 0.9 % Sodium Chloride Mini Bag 100 ML IVPB SCH (00:33)
[2020-09-27] MEDS: Piperacillin/Tazobactam 3.375 GM in 0.9 % Sodium Chloride Mini Bag 100 ML IVPB SCH (04:17)
[2020-09-27 07:51] LABS: Basophils # 0.1 K/mcL (0.0-0.2); Basophils % 0.6 %; Eosinophils # 0.2 K/mcL (0.0-0.6); Eosinophils % 0.7 %; Hematocrit 48.5 % (37.5-50.1); Hemoglobin 16.1 g/dL (12.9-16.9); Immature Granulocytes % 0.8 % (0-4); Lymphocytes # 1.6 K/mcL (0.6-4.6); Lymphocytes % 7.5 %; Mean Corpuscular HGB Conc 33.2 g/dL (31.6-35.5); Mean Corpuscular Hemoglobin 30.5 pg (28.0-33.3); Mean Corpuscular Volume 91.9 fL (83.0-100.0); Mean Platelet Volume 10.2 fL (9.4-12.4); Monocytes # 2.1 K/mcL (0.0-1.3); Monocytes % 9.8 %; Neutrophils # 17.2 K/mcL (1.6-8.9); Platelet Count 182 K/mcL (140-400); Red Blood Count 5.28 M/mcL (4.19-5.50); Red Cell Distribution Width 14.5 % (11.5-14.5); Segmented Neutrophils % 80.6 %; White Blood Count 21.4 K/mcL (4.3-11.1)
[2020-09-27 13:15] LABS: BUN/Creatinine Ratio 39 (6-26); Blood Urea Nitrogen 25 mg/dL (8-23); Calcium 9.1 mg/dL (8.6-10.3); Carbon Dioxide 31 mEq/L (23-29); Chloride 93 mEq/L (98-107); Glucose 72 mg/dL (70-105); Osmolality,Calculated 273 (280-300); Potassium 4.6 mEq/L (3.5-5.1); Sodium 130 mEq/L (136-145); eGFR For African Americans > 60 (> 60); eGFR For Non-African Americans > 60 (> 60)
[2020-09-28 02:59] LABS: Basophils # 0.1 K/mcL (0.0-0.2); Basophils % 0.3 %; Hematocrit 47.7 % (37.5-50.1); Hemoglobin 16.1 g/dL (12.9-16.9); Immature Granulocytes % 0.7 % (0-4); Lymphocytes # 1.9 K/mcL (0.6-4.6); Lymphocytes % 9.6 %; Mean Corpuscular HGB Conc 33.8 g/dL (31.6-35.5); Mean Corpuscular Hemoglobin 30.1 pg (28.0-33.3); Mean Corpuscular Volume 89.3 fL (83.0-100.0); Mean Platelet Volume 9.8 fL (9.4-12.4); Neutrophils # 15.5 K/mcL (1.6-8.9); Platelet Count 190 K/mcL (140-400); Red Blood Count 5.34 M/mcL (4.19-5.50); Red Cell Distribution Width 14.5 % (11.5-14.5); Segmented Neutrophils % 79.4 %; White Blood Count 19.5 K/mcL (4.3-11.1)
[2020-09-28 03:22] LABS: BUN/Creatinine Ratio 42 (6-26); Blood Urea Nitrogen 18 mg/dL (8-23); Calcium 8.6 mg/dL (8.6-10.3); Carbon Dioxide 30 mEq/L (23-29); Chloride 97 mEq/L (98-107); Glucose 85 mg/dL (70-105); Osmolality,Calculated 275 (280-300); Sodium 132 mEq/L (136-145); eGFR For African Americans > 60 (> 60); eGFR For Non-African Americans > 60 (> 60)
[2020-09-28 08:16] VITALS: O2SAT 98
[2020-09-28 11:45] LABS: Adenovirus Not Detected (Not Detect); Bordetella Pertussis Not Detected (Not Detect); Chlamydophila pneumoniae Not Detected (Not Detect); Coronavirus 229E Not Detected (Not Detect); Coronavirus HKU1 Not Detected (Not Detect); Coronavirus NL63 Not Detected (Not Detect); Coronavirus OC43 Not Detected (Not Detect); Human Metapneumovirus Not Detected (Not Detect); Human Rhinovirus/Enterovirus Not Detected (Not Detect); Influenza A Subtype 2009 H1 Not Detected (Not Detect); Influenza B Not Detected (Not Detect); Mycoplasma pneumoniae Not Detected (Not Detect); Parainfluenza Virus 1 Not Detected (Not Detect); Parainfluenza Virus 2 Not Detected (Not Detect); Parainfluenza Virus 3 Not Detected (Not Detect); Parainfluenza Virus 4 Not Detected (Not Detect); Respiratory Syncytial Virus Not Detected (Not Detect); SARS-CoV-2 Not Detected (Not Detect)
[2020-09-28 15:19] VITALS: BP 114/63; PULSE 67; TEMP 97.7
== END 2020-09-28 20:00 | DRG 871 ==
LOC: 2NENU → SUATTDRO 16:40
PROVIDERS: ADMIT Internal Medicine; ATTEND Internal Medicine